=== PATIENT | male | born 1985 | race American Indian/Alaskan Native ===

== ENCOUNTER 2019-05-12 07:22 | Emergency (ER) | payer MEDICAID ==
--- NOTE | 2019-05-12 07:49 | Emergency Department Report ---
HPI - General Chief Complaint: Psych Time Seen by Provider: 05/12/19 07:46 - HPI HPI: 33-year-old -Italian male presents to the emergency department from home, brought in by his mother, for a mental health evaluation. The patient has a past medical history of schizophrenia and allegedly is compliant with his medications that include Depakote, Paxil, Risperdal and a monthly Invega injection. Mom says that he has been talking to himself for the past few days and had admitted to her that he is hearing voices. They came home yesterday and found broken glass and some broken household items that he appears to have intentionally broken. Mom also says that he has been displaying some suicidal ideations. For me, the patient is not very forthcoming with information and just kept repeating "I'm gonna make a move." Through triage, the patient was heard saying that he is homicidal and "I want to get a gun and shoot them in the head." ED Past Medical Hx - Past Medical History Previous Medical History?: Yes Hx Psychiatric Treatment: Yes (Hx Dx Schizophrenia) - Surgical History Past Surgical History?: No - Social History Smoking Status: Current Every Day Smoker Substance Use Type: None - Medications Home Medications: Home Medications Medication Instructions Recorded Confirmed Last Taken Type ALBUTEROL NEB's [Proventil 0.083%] 2.5 mg IH TID PRN 04/07/14 05/13/19 04/03/[address] [Depakote Dr] 1,500 mg PO HS 04/07/14 05/12/19 05/12/19 07:00 History PARoxetine [Paxil] 20 mg PO DAILY 04/07/14 05/13/19 04/06/14 21:00 History risperiDONE [Risperdal] 2 mg PO BID 04/07/14 05/12/19 1 Day Ago History ~05/11/19 Benztropine [Cogentin] 1 mg PO BID 05/12/19 05/12/19 1 Day Ago History ~05/11/19 ED Review of Systems ROS: Stated complaint: MH Other details as noted in HPI Comment: Unobtainable due to pts medical conditions Psychiatric: auditory hallucinations, homicidal thoughts, suicidal thoughts Physical Exam - Physical Exam Vital Signs: Vital Signs 05/12/19 07:30 Temperature 98.3 F Pulse Rate 89 Respiratory 16 Rate Blood Pressure 144/80 O2 Sat by Pulse 99 Oximetry Physical Exam: GENERAL: The patient is well-developed well-nourished. HENT: Normocephalic. Atraumatic. Patient has moist mucous membranes. EYES: Extraocular motions are intact. NECK: Supple. Trachea is midline. CHEST/LUNGS: Clear to auscultation. There is no respiratory distress noted. HEART/CARDIOVASCULAR: Regular. There is no tachycardia. There is no murmur. ABDOMEN: Abdomen is soft, nontender. Patient has normal bowel sounds. There is no abdominal distention. SKIN: Skin is warm and dry. NEURO: The patient is awake but not always cooperative. Mostly nonverbal but when he did speak there was no dysarthria. MUSCULOSKELETAL: There is no tenderness or deformity. There is no evidence of acute injury. ED Course Vital Signs 05/12/19 07:30 Temperature 98.3 F Pulse Rate 89 Respiratory 16 Rate Blood Pressure 144/80 O2 Sat by Pulse 99 Oximetry ED Medical Decision Making - Lab Data Result diagrams: 05/12/19 07:48 05/12/19 07:48 - Medical Decision Making This patient was brought in by his mother with the complaint of auditory hallucinations, responding to internal stimuli, suicidal and homicidal ideations and instructed behavior at home. He has a history of schizophrenia and is allegedly compliant with his medications. Due to the suicidal and homicidal ideations, the patient has been made a 1013. His labs are unremarkable. His vital signs have been stable throughout his ED course. He appears medically cleared for psychiatric placement. - Differential Diagnosis schizophrenia, schizoaffective, bipolar disorder, substance abuse Critical Care Time: No Critical care attestation.: If time is entered above; I have spent that time in minutes in the direct care of this critically ill patient, excluding procedure time. ED Disposition Clinical Impression: Suicidal ideations, Homicidal ideations, History of schizophrenia Psychosis Qualifiers: Psychosis type: unspecified psychosis type Qualified Code(s): F29 - Unspecified psychosis not due to a substance or known physiological condition Disposition: DC/TX-65 PSY HOSP/PSY UNIT Is pt being admited?: No Condition: Stable Referrals: ZORAIDA MELGAR,SHEILA [Other] - 3-5 Days Time of Disposition: 13:10
[2019-05-12 08:05] LABS: Basophils # (Auto) 0.1 K/mm3 (0.0-0.1); Basophils % (Auto) 0.8 % (0.0-1.8); Eosinophils # (Auto) 0.1 K/mm3 (0.0-0.4); Hematocrit 39.8 % (35.5-45.6); Hemoglobin 13.8 gm/dl (11.8-15.2); Lymphocytes # (Auto) 2.8 K/mm3 (1.2-5.4); Lymphocytes % (Auto) 34.8 % (13.4-35.0); Mean Corpuscular HGB Conc 35 % (32-34); Mean Corpuscular Volume 91 fl (84-94); Monocytes # (Auto) 0.8 K/mm3 (0.0-0.8); Monocytes % (Auto) 10.5 % (0.0-7.3); Platelet Count 236 K/mm3 (140-440); Red Blood Count 4.39 M/mm3 (3.65-5.03)
[2019-05-12 08:11] LABS: Bacteria,Urine 4+ /HPF (Negative); Bilirubin,Urine NEG (Negative); Blood,Urine NEG (Negative); Color,Urine Yellow (Yellow); Mucus,Urine FEW /HPF; Sperm,Urine 2+ /HPF (NP)
[2019-05-12 08:17] LABS: Amphetamine Screen,Urine PRESUMPTIVE NEGATIVE; Benzodiazepines Screen,Urine PRESUMPTIVE NEGATIVE; Cocaine Screen,Urine PRESUMPTIVE NEGATIVE; Methadone Screen,Urine PRESUMPTIVE NEGATIVE; Opiate Screen,Urine PRESUMPTIVE NEGATIVE
[2019-05-12 08:25] LABS: BUN/Creatinine Ratio 11; Blood Urea Nitrogen 10 mg/dL (9-20); Calcium 9.2 mg/dL (8.4-10.2); Hemolysis Index 24
[2019-05-12 08:33] LABS: Cannabinoid Screen,Urine PRESUMPTIVE POSITIVE
--- NOTE | 2019-05-12 15:50 | Consultation ---
History of Present Illness - Reason for Consult Consult date: 05/12/19 Reason for consult: Initial Psychiatric Evaluation - Chief Complaint Chief complaint: " No ma'am I don't want to talk" - History of Present Psychiatric Illness Patient is a 33-year-old -Sudanese male presents to the emergency department from home, brought in by his mother, for a mental health evaluation. Today the patient refuses to speak provider. He states, " no ma'am I don't want to talk." Per record the patient has a past medical history of schizophrenia and allegedly is compliant with his medications that include Depakote, Paxil, Risperdal and a monthly Invega injection. Mom says that he has been talking to himself for the past few days and had admitted to her that he is hearing voices. They came home yesterday and found broken glass and some broken household items that he appears to have intentionally broken. Current Psychiatric Medications: Unable to Assess. Past Psychiatric History: Unable to Assess. Past Medication Trials: Unable to Assess. History of Trauma/Abuse: Unable to Assess. History of Drug/Alcohol Abuse: Unable to Assess. Social History: Unable to Assess. Family History of Psychiatric Illness/Substance Abuse: Unable to Assess. Medications and Allergies Allergies Allergy/AdvReac Type Severity Reaction Status Date / Time No Known Allergies Allergy Verified 04/07/14 04:50 Home Medications Medication Instructions Recorded Confirmed Last Taken Type ALBUTEROL NEB's [Proventil 0.083%] 2.5 mg IH TID PRN 04/07/14 08/25/14 04/03/[address] [Depakote Dr] 1,500 mg PO HS 04/07/14 05/12/19 05/12/19 07:00 History PARoxetine [Paxil] 20 mg PO DAILY 04/07/14 08/25/14 04/06/14 21:00 History risperiDONE [Risperdal] 2 mg PO BID 04/07/14 05/12/19 1 Day Ago History ~05/11/19 Benztropine [Cogentin] 1 mg PO BID 05/12/19 05/12/19 1 Day Ago History ~05/11/19 Mental Status Exam - Vital signs Last Vital Signs Temp 98.3 F 05/12/19 07:30 Pulse 89 11/09/19 07:30 Resp 16 05/12/19 07:30 BP 144/80 05/12/19 07:30 Pulse Ox 99 05/12/19 07:30 - Exam Narrative exam: Mental Status Exam: Appearance: hospital attire-green Behavior: poor eye contact Speech: regular rate and tone Mood: unable to assess Affect: unable to assess Thought Process: unable to assess Thought Content: unable to assess Cognition: unable to assess Insight: unable to assess Judgment: unable to assess Results Result Diagrams: 05/12/19 07:48 05/12/19 07:48 Abnormal lab results 05/12/19 05/12/19 05/12/19 Range/Units 07:48 07:48 07:48 MCHC 35 H (32-34) % [place] % (Auto) 10.5 H (0.0-7.3) % Salicylates < 0.3 L (2.8-20.0) mg/dL Acetaminophen < 5.0 L (10.0-30.0) ug/mL All other labs normal. Assessment and Plan Assessment and plan: Impression: Patient refuses initial psychiatric evaluation. He states that he does not want to talk at this time. Recommendation/Plan: 1. Will continue 1013. 2. Will reassess in 24 hours. Disposition: Will refer patient to inpatient psychiatric services. Will staff with Dr. Tadeo.
[2019-05-13] MEDS ORDERED: ACETAMINOPHEN 325 MG TAB PO ONE ×2 (11:05→20:30)
[2019-05-13] MEDS ORDERED: NICOTINE 14 MG/24 HR PATCH TD ONE (11:30)
--- NOTE | 2019-05-13 12:09 | Progress Note ---
Subjective - Reason for Consult Consult date: 05/13/19 Reason for consult: Psychiatric Follow-up Evaluation - Chief Complaint Chief complaint: "I feel nice " Patient is a 33-year-old -Northern Irish male that presents to the emergency department from home, brought in by his mother, for a mental health evaluation. Today the patient is calm and cooperative during the assessment. He reports that he does not know the name of his psychiatric diagnosis. He states, " I'm here because I flipped my mother's table over, cotton broker her glass astray, and broke the remote. I did that because I take the invega sustenna 156mg and it's too much. The invega sustenna is too strong and it makes me hyper." Patient believes that he takes invega sustenna for hyperactivity. He reports being easily irritated/agitated. He denies mood fluctuations, auditory/visual hallucinations, and delusions. Patient is attempting to minimize symptoms. Patient reports that he last received his invega sustenna 2-3 weeks ago. He denies drug/alcohol abuse. UDS positive for marijuana. He denies a history of trauma. He denies sexual, physical, or mental abuse. He reports that he lives with his mother and her . Highest level of education is 10th grade. Per patient he receives SSI in the amount of $675. Patient denies SI/HI's, A/VH's, and delusions. Mental Status Exam - Vital signs Last Vital Signs Temp 98.2 F 05/13/19 07:00 Pulse 68 05/13/19 07:00 Resp 20 05/13/19 07:00 BP 111/67 05/13/19 07:00 Pulse Ox 100 05/13/19 07:00 - Exam Narrative exam: Mental Status Exam: Appearance: hospital attire-green; calm, cooperative Behavior: intermittent eye contact, guarded Speech: regular rate and tone Mood: " I feel nice" Affect: constricted Thought Process: circumstantial Thought Content: denies SI's, A/VH's, and delusions Cognition: limited; alert and oriented x 3 Insight: variable Judgment: variable Assessment and Plan Impression: R/O schizophrenia, schizoaffective disorder, bipolar type. Today the patient is calm and cooperative during the assessment. He denies SI/HI's, A/VH's, and delusions. He appears to be guarded and minimizing symptoms. UDS positive for marijuana. Recommendation/Plan: 1. Continue 1013. 2. Attempt to gain collateral to determine proper disposition. 3. Start Risperdal 1 mg po QHS mood/psychosis. Discussed possible side effects. Patient verbalizes full understanding. 4. Will order routine HgA1c and lipid panel. Disposition: Will refer patient to inpatient psychiatric services. Will staff with Dr. Tadeo.
[2019-05-13 16:38] LABS: Chol/HDL Ratio 2.62 %
[2019-05-13] MEDS ORDERED: ACETAMINOPHEN 325 MG TAB ONE (19:32)
[2019-05-13 20:01] VITALS: BP 127/77
[2019-05-13] MEDS ORDERED: risperiDONE 1 MG TAB PO SCH (22:00)
== END 2019-05-14 00:18 ==
LOC: ED 07:22 → EEVIPCON 07:22 → ED 05-14 00:18
DX: F29 Unspecified psychosis not due to a substance or known physiological condition (principal); F20.9 Schizophrenia, unspecified; F17.200 Nicotine dependence, unspecified, uncomplicated; Z79.899 Other long term (current) drug therapy
CPT/HCPCS: 36415; 80048; 80061; 80307; 80320; 81001; 83036; 85025; 99285; G0480

== ENCOUNTER 2020-06-09 18:26 | Emergency (ER) | payer MEDICAID ==
[2020-06-09 19:05] VITALS: BP 143/93
== END 2020-06-09 22:58 | disposition left against medical advice (07) ==
LOC: ED 18:26
DX: R45.851 Suicidal ideations (principal); F20.9 Schizophrenia, unspecified; Z53.21 Procedure and treatment not carried out due to patient leaving prior to being seen by health care provider

== ENCOUNTER 2020-09-11 14:09 | Emergency (ER) | payer MEDICAID ==
[2020-09-11] MEDS ORDERED: DIPHtheria,PERTUSSIS(ACELL),TETANUS VACCINE/PF 0.5 ML VIAL IM ONE (14:46)
[2020-09-11] MEDS ORDERED: LIDOCAINE 2%/EPINEPHRINE 1:200,000 VIAL (20 ML) INFILTRATI ONE (14:54)
--- NOTE | 2020-09-11 15:01 | Emergency Department Report ---
ED Laceration HPI - HPI Chief Complaint: Extremity Injury, Upper Stated Complaint: ARM LAC Time Seen by Provider: 09/11/20 14:22 Occurred When: Yesterday Location: Upper Extremity Severity: mild Tetanus Status: Not up to Date Laceration Symptoms: Yes Pain, No Foreign Body Sensation, No Numbness, No Weakness Other History: This is a 34-year-old male nontoxic, well nourished in appearance, no acute signs of distress presents to the ED with c/o of right upper arm laceration that occurred yesterday around 10 PM. Patient stated that he punched a glass window due to anger. Patient denies any suicidal homicidal ideation. Patient denies any auditory or visual hallucinations. Patient stated he got into argument that is why he did that. Patient denies decreased sensation or range of motion. Patient stated bleeding is under control. Denies any numbness, tingling, fever, chills, nausea, vomiting, chest pain, shortness of breath, headache or stiff neck. Patient denies any allergies. Patient is that he is not up-to-date with tetanus. ED Review of Systems ROS: Stated complaint: ARM LAC Other details as noted in HPI Constitutional: denies: chills, fever Eyes: denies: eye pain, eye discharge, vision change ENT: denies: ear pain, throat pain Respiratory: denies: cough, shortness of breath, wheezing Cardiovascular: denies: chest pain, palpitations Endocrine: no symptoms reported Gastrointestinal: denies: abdominal pain, nausea, diarrhea Genitourinary: denies: urgency, dysuria Musculoskeletal: denies: back pain, joint swelling, arthralgia Skin: denies: rash, lesions Neurological: denies: headache, weakness, paresthesias Psychiatric: denies: anxiety, depression Hematological/Lymphatic: denies: easy bleeding, easy bruising ED Past Medical Hx - Past Medical History Hx Psychiatric Treatment: Yes (Hx Dx Schizophrenia) - Social History Smoking Status: Current Every Day Smoker - Medications Home Medications: Home Medications Medication Instructions Recorded Confirmed Last Taken Type ALBUTEROL NEB's [Proventil 0.083%] 2.5 mg IH TID PRN 04/07/14 05/13/19 04/03/13 History Divalproex [Alma Tate] 1,500 mg PO HS 04/07/14 05/12/19 05/12/19 07:00 History PARoxetine [Paxil] 20 mg PO DAILY 04/07/14 05/13/19 04/06/14 21:00 History risperiDONE [Risperdal] 2 mg PO BID 04/07/14 05/12/19 1 Day Ago History ~05/11/19 Benztropine [Cogentin] 1 mg PO BID 05/12/19 05/12/19 1 Day Ago History ~05/11/19 Sulfamethoxazole/Trimethoprim 1 each PO BID #14 tablet 09/11/20 Unknown Rx [Bactrim DS TAB] Laceration Physical Exam - Exam General: Vital signs noted. No distress. Alert and acting appropriately. Wound Length (cm): 7 Laceration Location: Upper Extremity Full Body Front + Back: 1 - 7 cm laceration Laceration Exam: Yes Normal Distal CMS, No Foreign Body, No Exposed Tendon, Vessel, or Nerve, No Tendon Injury ED Course Vital Signs 09/11/20 16:51 Temperature 98.2 F Pulse Rate 78 Respiratory 18 Rate Blood Pressure 121/67 [Left] O2 Sat by Pulse 98 Oximetry - Reevaluation(s) Reevaluation #1: 09/11/20 15:01 Patient is speaking in full sentences with no signs of distress noted. - Laceration /Wound Repair Left Arm Wound Location: upper extremity Wound Length (cm): 10 Wound's Depth, Shape: irregular, flap Wound Explored: clean Irrigated w/ Saline (ccs): 40 Betadine Prep?: Yes Anesthesia: Lidocaine w/ Epi Volume Anesthetic (ccs): 6 (2% lido with 1:200,000 epi) Wound Repaired With: sutures Suture Size/Type: 5:0, proline Number of Sutures: 22 Layer Closure?: Yes Deep Layer Suture Size/Type: 3:0 (Vicryl) Number Deep Layer Sutures: 3 Sterile Dressing Applied?: Yes Progress: Under sterile field, I used Betadine to clean the area. I then used 40 mL of normal saline to flush the area. I then used 2% lidocaine with epi 1-200,000 and injected 6 mL to the wound. I then used a 3-0 Vicryl with total of 3 stitches for deeper skin. I then used a 5-0 Prolene to suture the laceration. Number of stitches 22. I then applied a sterile 4 x 4 with tape. Minimal bleeding noted but is under control. Patient tolerated procedure well with no signs of distress. ED Medical Decision Making - Radiology Data [facility] [address] [place] [address] XRay Report Signed Patient: DAYAN MARCOS MR#: [id number] : 1985 Acct:[id number] Age/Sex: 34 / M ADM Date: 09/11/20 Loc: ED Attending Dr: Ordering Physician: SRIDHAR ONOFRE NP Date of Service: 09/11/20 Procedure(s): XR humerus 2+V RT Accession Number(s): [id number] cc: SRIDHAR ONOFRE NP Fluoro Time In Minutes: Right humerus 4 views INDICATION: Right humeral pain IMPRESSION: No radiopaque foreign body is identified within the right arm. Signer Name: Jb Perry MD Signed: 09/11/2020 3:35 PM Workstation Name: [id number] Transcribed By: BC Dictated By: Jb Perry MD Electronically Authenticated By: Jb Perry MD Signed Date/Time: 09/11/201534 DD/ 34 TD/TT: - Medical Decision Making This is a 34-year-old male that presents with laceration. Patient is stable and was examined by me. The laceration suturing has been performed and has been performed and patient tolerated well. A sterile dressing has been applied. Patient was educated on proper wound care. Patient is discharged with Bactrim . Patient was instructed to return in 10 days for suture removal. Patient was instructed to refer to Follow-up with a primary care doctor in 3-5 days or if symptoms worsen and continue return to emergency room as soon as possible. At time of discharge, the patient does not seem toxic or ill in appearance. No acute signs of distress noted. Patient agrees to discharge treatment plan of care. No further questions noted by the patient. Critical care attestation.: If time is entered above; I have spent that time in minutes in the direct care of this critically ill patient, excluding procedure time. ED Disposition Clinical Impression: Laceration Disposition: DC-01 TO HOME OR SELFCARE Is pt being admited?: No Does the pt Need Aspirin: No Condition: Stable Instructions: Laceration Care, Adult Additional Instructions: Follow-up with a primary care doctor in 3-5 days or if symptoms worsen and continue return to emergency room as soon as possible. Return in 10 days for suture removal. Finish full course of antibiotics that is prescribed to you during your visit today. Prescriptions: Sulfamethoxazole/Trimethoprim [Bactrim DS TAB] 1 each PO BID #14 tablet Referrals: GAB BASURTO MD [Primary Care Provider] - 3-5 Days ARABELLA MORFIN MD [Staff Physician] - 3-5 Days Time of Disposition: 16:41
--- NOTE | 2020-09-11 15:40 | XRay Report ---
Right humerus 4 views INDICATION: Right humeral pain IMPRESSION: No radiopaque foreign body is identified within the right arm. Signer Name: Jb Perry MD Signed: 09/11/2020 3:35 PM Workstation Name: [id number]
[2020-09-11 16:52] VITALS: BP 121/67
== END 2020-09-11 17:04 | disposition home or self-care (01) ==
LOC: ED 14:09
DX: S41.111A Laceration without foreign body of right upper arm, initial encounter (principal); F20.9 Schizophrenia, unspecified; F17.200 Nicotine dependence, unspecified, uncomplicated; Z79.899 Other long term (current) drug therapy; W25.XXXA Contact with sharp glass, initial encounter; Y93.89 Activity, other specified; Y92.89 Other specified places as the place of occurrence of the external cause; Y99.8 Other external cause status
CPT/HCPCS: 90471; 90715

== ENCOUNTER 2020-10-13 04:48 | Emergency (ER) | payer MEDICAID ==
[2020-10-13 06:47] LABS: Basophils # (Auto) 0.1 K/mm3 (0.0-0.1); Basophils % (Auto) 0.6 % (0.0-1.8); Eosinophils # (Auto) 0.2 K/mm3 (0.0-0.4); Eosinophils % (Auto) 2.1 % (0.0-4.3); Hematocrit 39.2 % (35.5-45.6); Hemoglobin 13.5 gm/dl (11.8-15.2); Lymphocytes # (Auto) 3.1 K/mm3 (1.2-5.4); Lymphocytes % (Auto) 35.6 % (13.4-35.0); Mean Corpuscular HGB Conc 35 % (32-34); Mean Corpuscular Volume 89 fl (84-94); Monocytes # (Auto) 0.8 K/mm3 (0.0-0.8); Monocytes % (Auto) 9.1 % (0.0-7.3); Platelet Count 247 K/mm3 (140-440)
[2020-10-13 06:50] LABS: BUN/Creatinine Ratio 7
[2020-10-13 06:52] LABS: Blood Urea Nitrogen 8 mg/dL (9-20); Calcium 9.3 mg/dL (8.4-10.2); Hemolysis Index 4
[2020-10-13 08:19] LABS: Bilirubin,Urine NEG (Negative); Blood,Urine NEG (Negative); Color,Urine Yellow (Yellow); Mucus,Urine FEW /HPF; Protein,Urine <15 mg/dL mg/dL (Negative); Sperm,Urine 1+ /HPF (NP); Urobilinogen,Urine < 2.0 mg/dL (<2.0)
[2020-10-13 08:24] LABS: Amphetamine Screen,Urine Negative; Benzodiazepines Screen,Urine Negative; Cannabinoid Screen,Urine Negative; Cocaine Screen,Urine Negative; Methadone Screen,Urine Negative; Opiate Screen,Urine Negative
--- NOTE | 2020-10-13 12:20 | Event Note ---
ED Screening Note Date of service: 10/13/20 Time: 12:18 ED Screening Note: 35-year-old male patient with history of intellectual disability and prior suicidal ideations presents to the emergency department with complaints of auditory hallucinations. Patient states he has been "hearing voices." He is not currently taking any medication. States he does not have anywhere to live because he was released from his long term and his mother/father told him "he's getting to be too much." Denies SI/HI. General: Awake, appropriately interactive, no acute distress. Neck: Supple. Full range of motion intact. Cardiovascular: Normal peripheral perfusion. Pulmonary: No respiratory distress. Patient is speaking normally without use of accessory muscles. Skin: No apparent rashes or lesions. Neurological: No facial asymmetry. Speech is clear. Follows commands. Patient is alert and oriented. Musculoskeletal: Moves all four extremities spontaneously with normal range of motion. Psych: Cooperative. Speech is slow. Thoughts logically construed. I have greeted and performed a focused rapid initial assessment of this patient. A comprehensive ED assessment and evaluation of the patient, analysis of all test results, and completion of the medical decision-making process will be conducted by additional ED providers. This initial assessment/diagnostic orders/clinical plan/treatment(s) is/are subject to change based on patients health status, clinical progression and re-assessment. Further treatment and workup at subsequent clinical provider's discretion. Patient/guardian urged not to elope from the ED as their condition may be serious if not clinically assessed and managed.
[2020-10-13 20:10] VITALS: BP 130/95
== END 2020-10-13 19:00 | disposition left against medical advice (07) ==
LOC: ED 04:48
DX: R44.0 Auditory hallucinations (principal); Z53.21 Procedure and treatment not carried out due to patient leaving prior to being seen by health care provider
CPT/HCPCS: 36415; 80048; 80307; 80320; 81001; 85025; 87086; G0480

== ENCOUNTER 2020-10-15 14:32 | Emergency (ER) | payer MEDICAID ==
[2020-10-15 15:39] LABS: Basophils # (Auto) 0.1 K/mm3 (0.0-0.1); Basophils % (Auto) 0.7 % (0.0-1.8); Eosinophils # (Auto) 0.1 K/mm3 (0.0-0.4); Eosinophils % (Auto) 0.9 % (0.0-4.3); Hematocrit 37.7 % (35.5-45.6); Lymphocytes # (Auto) 2.1 K/mm3 (1.2-5.4); Lymphocytes % (Auto) 29.3 % (13.4-35.0); Mean Corpuscular HGB Conc 35 % (32-34); Mean Corpuscular Volume 88 fl (84-94); Monocytes # (Auto) 0.4 K/mm3 (0.0-0.8); Monocytes % (Auto) 5.6 % (0.0-7.3); Platelet Count 248 K/mm3 (140-440); Red Blood Count 4.29 M/mm3 (3.65-5.03); Red Cell Distribution Width 13.9 % (13.2-15.2)
[2020-10-15 15:41] LABS: Bacteria,Urine 1+ /HPF (Negative); Bilirubin,Urine NEG (Negative); Blood,Urine NEG (Negative); Color,Urine Yellow (Yellow); Mucus,Urine 2+ /HPF; Protein,Urine <15 mg/dL mg/dL (Negative)
[2020-10-15 15:47] LABS: Amphetamine Screen,Urine Negative; Benzodiazepines Screen,Urine Negative; Cannabinoid Screen,Urine Negative; Cocaine Screen,Urine Negative; Methadone Screen,Urine Negative; Opiate Screen,Urine Negative
[2020-10-15 15:51] LABS: BUN/Creatinine Ratio 9; Blood Urea Nitrogen 10 mg/dL (9-20); Calcium 8.8 mg/dL (8.4-10.2); Hemolysis Index 35
--- NOTE | 2020-10-15 18:42 | Emergency Department Report ---
ED Psych HPI - General Chief Complaint: Psych Stated Complaint: MH EVAL Time Seen by Provider: 10/15/20 17:52 Source: patient Mode of arrival: Ambulatory - History of Present Illness Initial Comments: 35-year-old male, history of developmental delay, schizophrenia, presents to ED with auditory hallucinations and suicidal ideations. Patient states he started feeling suicidal this morning. He denies any plan. MD Complaint: suicidal ideation -: days(s) (1) Associated Psychiatric Symptoms: suicidal ideation Quality: constant Improves With: none Worsens With: none Associated Symptoms: denies other symptoms Treatments Prior to Arrival: none If Self Harm: admits thoughts of - Related Data Home Medications Medication Instructions Recorded Confirmed Last Taken ALBUTEROL NEB's [Proventil 0.083%] 2.5 mg IH TID PRN 04/07/14 05/13/19 04/03/13 Divalproex [Alma Tate] 1,500 mg PO HS 04/07/14 05/12/19 05/12/19 07:00 PARoxetine [Paxil] 20 mg PO DAILY 04/07/14 05/13/19 04/06/14 21:00 risperiDONE [Risperdal] 2 mg PO BID 04/07/14 05/12/19 1 Day Ago ~05/11/19 Benztropine [Cogentin] 1 mg PO BID 05/12/19 05/12/19 1 Day Ago ~05/11/19 Previous Rx's Medication Instructions Recorded Last Taken Type Sulfamethoxazole/Trimethoprim 1 each PO BID #14 tablet 09/11/20 Unknown Rx [Bactrim DS TAB] Sulfamethoxazole/Trimethoprim 1 each PO Q12HR #10 tablet 10/17/20 Unknown Rx [Bactrim DS TAB] Allergies Allergy/AdvReac Type Severity Reaction Status Date / Time No Known Allergies Allergy Verified 10/18/20 14:05 ED Review of Systems ROS: Stated complaint: MH EVAL Other details as noted in HPI Comment: All other systems reviewed and negative Psychiatric: auditory hallucinations, suicidal thoughts ED Past Medical Hx - Past Medical History Hx Psychiatric Treatment: Yes (Hx Dx Schizophrenia) - Social History Smoking Status: Never Smoker Substance Use Type: None - Medications Home Medications: Home Medications Medication Instructions Recorded Confirmed Last Taken Type ALBUTEROL NEB's [Proventil 0.083%] 2.5 mg IH TID PRN 04/07/14 05/13/19 04/03/[address] [Depakote Dr] 1,500 mg PO HS 04/07/14 05/12/19 05/12/19 07:00 History PARoxetine [Paxil] 20 mg PO DAILY 04/07/14 05/13/19 04/06/14 21:00 History risperiDONE [Risperdal] 2 mg PO BID 04/07/14 05/12/19 1 Day Ago History ~05/11/19 Benztropine [Cogentin] 1 mg PO BID 05/12/19 05/12/19 1 Day Ago History ~05/11/19 Sulfamethoxazole/Trimethoprim 1 each PO BID #14 tablet 09/11/20 Unknown Rx [Bactrim DS TAB] Sulfamethoxazole/Trimethoprim 1 each PO Q12HR #10 tablet 10/17/20 Unknown Rx [Bactrim DS TAB] ED Physical Exam - General Limitations: No Limitations General appearance: alert, in no apparent distress - Head Head exam: Present: atraumatic, normocephalic - Eye Eye exam: Present: normal appearance, EOMI - ENT ENT exam: Present: mucous membranes moist - Neck Neck exam: Present: normal inspection - Respiratory Respiratory exam: Present: normal lung sounds bilaterally. Absent: respiratory distress - Cardiovascular Cardiovascular Exam: Present: regular rate, normal rhythm - GI/Abdominal GI/Abdominal exam: Absent: distended - Extremities Exam Extremities exam: Present: normal inspection - Neurological Exam Neurological exam: Present: alert, oriented X3 - Psychiatric Psychiatric exam: Present: normal affect, normal mood - Skin Skin exam: Present: warm, dry, intact, normal color ED Course Vital Signs 10/15/20 10/15/20 10/15/20 14:46 18:44 20:05 Temperature 99.9 F H 96 F L 98.1 F Pulse Rate 114 H 90 113 H Respiratory 20 18 18 Rate Blood Pressure 144/96 Blood Pressure 120/82 126/78 [Left] O2 Sat by Pulse 97 98 99 Oximetry 10/16/20 10/16/20 10/16/20 06:45 08:04 20:04 Temperature 97.8 F 98.0 F 98.4 F Pulse Rate 74 81 72 Respiratory 18 20 18 Rate Blood Pressure 132/79 Blood Pressure 105/57 108/60 [Left] O2 Sat by Pulse 96 98 98 Oximetry 10/17/20 10/17/20 04:31 09:54 Temperature 98.9 F Pulse Rate 80 Respiratory 18 18 Rate Blood Pressure Blood Pressure 144/88 [Left] O2 Sat by Pulse 98 100 Oximetry ED Medical Decision Making - Lab Data Result diagrams: 10/15/20 15:17 10/15/20 15:17 - Medical Decision Making 35-year-old male, history of developmental delay, schizophrenia, presents to ED with auditory hallucinations and suicidal ideations. Patient states he started feeling suicidal this morning. He denies any plan. Patient medically clear for mental health evaluation. Will dispo per psych. Critical care attestation.: If time is entered above; I have spent that time in minutes in the direct care of this critically ill patient, excluding procedure time. ED Disposition Clinical Impression: Schizophrenia, UTI (urinary tract infection) Disposition: DC-01 TO HOME OR SELFCARE Is pt being admited?: No Condition: Stable Additional Instructions: Rx antibiotic for urinary tract infection. Follow-up on this with primary care. Prescriptions: Sulfamethoxazole/Trimethoprim [Bactrim DS TAB] 1 each PO Q12HR #10 tablet Referrals: PRIMARY CARE, [Primary Care Provider] - 3-5 Days
[2020-10-15] MEDS: SULFAMETHOXAZOLE/TRIMETHOPRIM 800/160MG DS TAB PO SCH (21:57)
--- NOTE | 2020-10-16 09:01 | Consultation ---
History of Present Illness - Reason for Consult Consult date: 10/16/20 Reason for consult: psychosis - History of Present Psychiatric Illness Per ED Note: 35-year-old male, history of developmental delay, schizophrenia, presents to ED with auditory hallucinations and suicidal ideations. Patient states he started feeling suicidal this morning. He denies any plan. The patient was seen today. He is lying down asleep. He easily arouses but is uncooperative. The patient says "I'm hearing voices and want to kill myself." He then says "they already know what's going on with me." He would provide no further insight as to what is going on with him, or answer any more questions. PAST PSYCHIATRIC HISTORY: Unable to obtain PAST MEDICAL HISTORY: None reported Family Psychiatric History: None reported or documented SOCIAL HISTORY Unable to obtain REVIEW OF SYSTEMS Unable to obtain MENTAL STATUS EXAMINATION General Appearance and Behavior: Age appropriate, sleeping, uncooperative Cooperation: uncooperative, guarded Psychomotor Behavior: Psychomotor normal Mood: Affect and affective range: Restricted Thought Process: illogical Speech: Normal tone and pace Thought Content Suicidal Ideation: Yes Homicidal Ideation: Denies Hallucinations: Yes, Auditory Delusions: None elicited Impulse Control: Insight and Judgment: Memory: Attention: Orientation: Assessment and Plan (1) Schizophrenia Treatment Plan 1013 Start Risperidone 1mg po BID Start Depakote DR 250mg po BID Sitter: Defer to primary Medical: Per primary Disposition: Recommend acute psychiatric inpatient Will follow. Thank you for this consult. Case staffed with Dr. Huff. Medications and Allergies Allergies Allergy/AdvReac Type Severity Reaction Status Date / Time No Known Allergies Allergy Verified 10/15/20 14:45 Home Medications Medication Instructions Recorded Confirmed Last Taken Type ALBUTEROL NEB's [Proventil 0.083%] 2.5 mg IH TID PRN 04/07/14 05/13/19 04/03/13 History Divalproex [Alma Tate] 1,500 mg PO HS 04/07/14 05/12/19 05/12/19 07:00 History PARoxetine [Paxil] 20 mg PO DAILY 04/07/14 05/13/19 04/06/14 21:00 History risperiDONE [Risperdal] 2 mg PO BID 04/07/14 05/12/19 1 Day Ago History ~05/11/19 Benztropine [Cogentin] 1 mg PO BID 05/12/19 05/12/19 1 Day Ago History ~05/11/19 Sulfamethoxazole/Trimethoprim 1 each PO BID #14 tablet 09/11/20 Unknown Rx [Bactrim DS TAB] Active Meds: Active Medications Trimethoprim/Sulfamethoxazole (Sulfamethoxazole/Trimethoprim 800/160mg Ds Tab) 1 each PO Q12HR MATT; Protocol Stop: 10/18/20 10:01 Last Admin: 10/15/20 21:57 Dose: 1 each Documented by: Mental Status Exam - Vital signs Last Vital Signs Temp 98.0 F 10/16/20 08:04 Pulse 81 10/16/20 08:04 Resp 20 10/16/20 08:04 BP 132/79 10/16/20 08:04 Pulse Ox 98 10/16/20 08:04 Results Result Diagrams: 10/15/20 15:17 10/15/20 15:17 Abnormal lab results 10/15/20 10/15/20 10/15/20 Range/Units 15:17 15:17 15:17 MCHC (32-34) % Sodium 135 L (137-145) mmol/L Glucose 150 H (75-100) mg/dL Urine WBC (Auto) (0.0-6.0) /HPF Salicylates < 0.3 L (2.8-20.0) mg/dL Acetaminophen 5.0 L (10.0-30.0) ug/mL 10/15/20 10/15/20 Range/Units 15:17 Unknown MCHC 35 H (32-34) % Sodium (137-145) mmol/L Glucose (75-100) mg/dL Urine WBC (Auto) 14.0 H (0.0-6.0) /HPF Salicylates (2.8-20.0) mg/dL Acetaminophen (10.0-30.0) ug/mL All other labs normal.
[2020-10-16] MEDS ORDERED: ACETAMINOPHEN 325 MG TAB PO ONE (10:08)
[2020-10-16] MEDS: risperiDONE 1 MG TAB PO SCH ×2 (10:13→23:19)
[2020-10-16] MEDS: DIVALPROEX DR 250 MG TAB PO SCH ×2 (10:13→23:18)
[2020-10-16] MEDS: SULFAMETHOXAZOLE/TRIMETHOPRIM 800/160MG DS TAB PO SCH ×2 (10:42→23:15)
[2020-10-17 09:55] VITALS: BP 144/88
[2020-10-17] MEDS ORDERED: ACETAMINOPHEN 325 MG TAB PO ONE (10:56)
[2020-10-17] MEDS: DIVALPROEX DR 250 MG TAB PO SCH (11:08)
[2020-10-17] MEDS: SULFAMETHOXAZOLE/TRIMETHOPRIM 800/160MG DS TAB PO SCH (11:08)
[2020-10-17] MEDS: risperiDONE 1 MG TAB PO SCH (11:09)
--- NOTE | 2020-10-17 12:21 | Progress Note ---
Subjective - Reason for Consult Consult date: 10/17/20 Reason for consult: MHE Requesting physician: NAHED TILLEY - Chief Complaint Chief complaint: PSYCH Progress Patient seen this morning, patient reported doing okay, states that he has been compliant with his medication, denies that he is no longer suicidal or hearing voices at this moment. Patient stated he was the one hearing voices and told his mom to bring him yesterday he does not hurt himself or anyone. Collateral: Spoke with patient mom patient mom stated that patient was scheduled to get Invega shot yesterday at the [facility] she is okay with picking up patient today if shot is given. REVIEW OF SYSTEMS Constitutional: Negative for weight loss ENT: Negative for stridor Respiratory: Negative for cough or hemoptysis All other systems reviewed and are negative MENTAL STATUS EXAMINATION General Appearance and Behavior: Age appropriate, fair hygiene, wearing appropriate clothes, good eye contact, cooperative polite with questioning. Cooperation: Participating/engaged Psychomotor Behavior: unremarkable and within normal limits Mood: Good Affect and affective range: congruent with mood Thought Process: Fluent/Logical, Thought Content: Within reality, Speech: Normal volume, Regular rate and rhythm, Intellectual Functioning: Average Suicidal Ideation: Denies SI Homicidal Ideation: Denies HI Impulse Control: Unimpaired Insight and Judgment: Normal insight and judgment, Memory: Normal, Attention: Normal, Orientation: Alert, oriented, Assessment and Plan (1) Schizophrenia Treatment Plan Invega shot given in ED, outpatient follow-up [facility] recommend at this time. Mom is updated on plan and agrees to picket [employer] patient at 2 PM. MEDICATIONS: Risks, benefits and alternatives of medications discussed with the patient, questions answered and consent obtained from patient. PSYCHOTHERAPY: Supportive psychotherapy provided MEDICAL: Per primary team DELIRIUM PRECAUTIONS: Please re-orient patient frequently, keep lights on during the day, and minimize benzodiazepines and opiates as these medications could worsen patient's confusion. TECHNICAL EDITOR: DISPOSITION: Do Not Recommend acute inpatient psychiatric hospitalization at this time. Case discussed with Dr. Huff who agrees with current disposition LEGAL STATUS: 1013 rescinded FOLLOW-UP: Will sign off Thank you for the consult. Please contact with any questions and/or concerns. Mental Status Exam - Vital signs Last Vital Signs Temp 98.9 F 10/17/20 09:54 Pulse 80 10/17/20 09:54 Resp 18 10/17/20 09:54 BP 144/88 10/17/20 09:54 Pulse Ox 100 10/17/20 09:54
[2020-10-17] MEDS ORDERED: PALIPERIDONE PALMITATE 234 MG/1.5 ML SYRINGE IM STA (12:24)
== END 2020-10-17 15:59 | disposition home or self-care (01) ==
LOC: EEVIPCON 14:32 → ED 14:32
DX: F25.9 Schizoaffective disorder, unspecified (principal); N39.0 Urinary tract infection, site not specified; Z79.899 Other long term (current) drug therapy
CPT/HCPCS: 36415; 80048; 80307; 80320; 81001; 85025; 87086; G0480

== ENCOUNTER 2020-10-18 01:50 | Emergency (ER) | payer MEDICAID ==
[2020-10-18 02:50] VITALS: BP 118/88
[2020-10-18 03:58] LABS: Basophils % (Auto) 0.5 % (0.0-1.8); Eosinophils % (Auto) 0.5 % (0.0-4.3); Hematocrit 39.6 % (35.5-45.6); Hemoglobin 13.7 gm/dl (11.8-15.2); Lymphocytes # (Auto) 2.3 K/mm3 (1.2-5.4); Lymphocytes % (Auto) 29.2 % (13.4-35.0); Mean Corpuscular HGB Conc 35 % (32-34); Mean Corpuscular Volume 89 fl (84-94); Monocytes # (Auto) 0.8 K/mm3 (0.0-0.8); Monocytes % (Auto) 9.9 % (0.0-7.3); Platelet Count 269 K/mm3 (140-440); Red Blood Count 4.45 M/mm3 (3.65-5.03)
[2020-10-18 04:14] LABS: BUN/Creatinine Ratio 7; Blood Urea Nitrogen 9 mg/dL (9-20); Calcium 9.3 mg/dL (8.4-10.2); Hemolysis Index 2
[2020-10-18 07:05] LABS: Bilirubin,Urine NEG (Negative); Blood,Urine NEG (Negative); Color,Urine Yellow (Yellow); Mucus,Urine 3+ /HPF; Sperm,Urine FEW /HPF (NP); Urobilinogen,Urine < 2.0 mg/dL (<2.0)
[2020-10-18 07:11] LABS: Amphetamine Screen,Urine PRESUMPTIVE NEGATIVE; Benzodiazepines Screen,Urine PRESUMPTIVE NEGATIVE; Cannabinoid Screen,Urine PRESUMPTIVE NEGATIVE; Cocaine Screen,Urine PRESUMPTIVE NEGATIVE; Methadone Screen,Urine PRESUMPTIVE NEGATIVE; Opiate Screen,Urine PRESUMPTIVE NEGATIVE
== END 2020-10-18 03:35 | disposition left against medical advice (07) ==
LOC: ED 01:50
DX: R44.0 Auditory hallucinations (principal); Z53.21 Procedure and treatment not carried out due to patient leaving prior to being seen by health care provider
CPT/HCPCS: 36415; 80048; 80307; 80320; 81001; 85025; G0480

== ENCOUNTER 2020-10-18 13:49 | Emergency (ER) | payer MEDICAID ==
[2020-10-18 14:54] LABS: Bilirubin,Urine NEG (Negative); Blood,Urine NEG (Negative); Color,Urine Straw (Yellow); Mucus,Urine FEW /HPF; Protein,Urine <15 mg/dL mg/dL (Negative); Urobilinogen,Urine < 2.0 mg/dL (<2.0); WBC,Urine < 1.0 /HPF (0.0-6.0)
[2020-10-18 14:57] LABS: Basophils # (Auto) 0.1 K/mm3 (0.0-0.1); Basophils % (Auto) 0.8 % (0.0-1.8); Eosinophils # (Auto) 0.1 K/mm3 (0.0-0.4); Eosinophils % (Auto) 0.6 % (0.0-4.3); Hematocrit 38.7 % (35.5-45.6); Lymphocytes # (Auto) 2.4 K/mm3 (1.2-5.4); Lymphocytes % (Auto) 28.3 % (13.4-35.0); Mean Corpuscular HGB Conc 34 % (32-34); Mean Corpuscular Volume 88 fl (84-94); Monocytes # (Auto) 0.6 K/mm3 (0.0-0.8); Monocytes % (Auto) 6.9 % (0.0-7.3); Platelet Count 268 K/mm3 (140-440); Red Cell Distribution Width 14.1 % (13.2-15.2)
[2020-10-18 14:58] LABS: Amphetamine Screen,Urine Negative; Benzodiazepines Screen,Urine Negative; Cannabinoid Screen,Urine Negative; Cocaine Screen,Urine Negative; Methadone Screen,Urine Negative; Opiate Screen,Urine Negative
[2020-10-18 15:20] LABS: Alanine Aminotransferase 24 units/L (7-56); Albumin 3.7 g/dL (3.9-5); BUN/Creatinine Ratio 9; Blood Urea Nitrogen 11 mg/dL (9-20); Hemolysis Index 11
--- NOTE | 2020-10-18 15:45 | Emergency Department Report ---
ED Psych HPI - General Chief Complaint: Psych Stated Complaint: MENTAL HEALTH Time Seen by Provider: 10/18/20 14:10 Source: patient Mode of arrival: Ambulatory - History of Present Illness Initial Comments: Patient is 35 years old male with history of schizophrenia. Patient presented to the ER by his mother for evaluation of hearing voices asking him to kill himself. Patient does not have a specific plan. Patient was seen here yesterday and discharged home. Patient denied homicidal ideation or visual hallucination. Patient found to be talking to himself. Patient is clearly responding to internal stimuli. MD Complaint: suicidal ideation, altered mental status Associated Psychiatric Symptoms: suicidal ideation, racing thoughts, auditory hallucinations Quality: constant If Self Harm: admits thoughts of - Related Data Home Medications Medication Instructions Recorded Confirmed Last Taken ALBUTEROL NEB's [Proventil 0.083%] 2.5 mg IH TID PRN 04/07/14 05/13/19 04/03/[address] [Alma Tate] 1,500 mg PO HS 04/07/14 05/12/19 05/12/19 07:00 PARoxetine [Paxil] 20 mg PO DAILY 04/07/14 05/13/19 04/06/14 21:00 risperiDONE [Risperdal] 2 mg PO BID 04/07/14 05/12/19 1 Day Ago ~05/11/19 Benztropine [Cogentin] 1 mg PO BID 05/12/19 05/12/19 1 Day Ago ~05/11/19 Previous Rx's Medication Instructions Recorded Last Taken Type Sulfamethoxazole/Trimethoprim 1 each PO BID #14 tablet 09/11/20 Unknown Rx [Bactrim DS TAB] Sulfamethoxazole/Trimethoprim 1 each PO Q12HR #10 tablet 10/17/20 Unknown Rx [Bactrim DS TAB] Allergies Allergy/AdvReac Type Severity Reaction Status Date / Time No Known Allergies Allergy Verified 10/18/20 14:05 ED Review of Systems ROS: Stated complaint: MENTAL HEALTH Other details as noted in HPI Comment: All other systems reviewed and negative Constitutional: denies: chills, fever Respiratory: denies: cough, shortness of breath, SOB with exertion Cardiovascular: denies: chest pain, palpitations Gastrointestinal: denies: abdominal pain, nausea, vomiting Neurological: denies: headache, weakness, numbness, paresthesias, confusion Psychiatric: auditory hallucinations, suicidal thoughts. denies: homicidal thoughts ED Past Medical Hx - Past Medical History Hx Psychiatric Treatment: Yes (Hx Dx Schizophrenia) - Social History Smoking Status: Never Smoker Substance Use Type: None - Medications Home Medications: Home Medications Medication Instructions Recorded Confirmed Last Taken Type ALBUTEROL NEB's [Proventil 0.083%] 2.5 mg IH TID PRN 04/07/14 05/13/19 04/03/[address] [Depakote Dr] 1,500 mg PO HS 04/07/14 05/12/19 05/12/19 07:00 History PARoxetine [Paxil] 20 mg PO DAILY 04/07/14 05/13/19 04/06/14 21:00 History risperiDONE [Risperdal] 2 mg PO BID 04/07/14 05/12/19 1 Day Ago History ~05/11/19 Benztropine [Cogentin] 1 mg PO BID 05/12/19 05/12/19 1 Day Ago History ~05/11/19 Sulfamethoxazole/Trimethoprim 1 each PO BID #14 tablet 09/11/20 Unknown Rx [Bactrim DS TAB] Sulfamethoxazole/Trimethoprim 1 each PO Q12HR #10 tablet 10/17/20 Unknown Rx [Bactrim DS TAB] ED Physical Exam - General Limitations: No Limitations General appearance: alert, in no apparent distress, anxious - Head Head exam: Present: atraumatic, normocephalic, normal inspection - Eye Eye exam: Present: normal appearance, PERRL - ENT ENT exam: Present: normal exam, normal orophraynx, mucous membranes moist - Neck Neck exam: Present: normal inspection, full ROM. Absent: tenderness, meningismus - Respiratory Respiratory exam: Present: normal lung sounds bilaterally - Cardiovascular Cardiovascular Exam: Present: regular rate, normal rhythm, normal heart sounds - GI/Abdominal GI/Abdominal exam: Present: soft, normal bowel sounds. Absent: distended, tenderness, guarding, rebound, rigid, organomegaly, mass, bruit, pulsatile mass, hernia - Extremities Exam Extremities exam: Present: normal inspection, full ROM, normal capillary refill. Absent: tenderness - Back Exam Back exam: Present: normal inspection, full ROM. Absent: CVA tenderness (R), CVA tenderness (L) - Neurological Exam Neurological exam: Present: alert, oriented X3, CN II-XII intact - Psychiatric Psychiatric exam: Present: suicidal ideation. Absent: agitated, homicidal ideation - Skin Skin exam: Present: warm, intact, normal color ED Course Vital Signs 10/18/20 10/18/20 10/19/20 14:04 19:24 02:18 Temperature 98.4 F 98.9 F 97.7 F Pulse Rate 90 70 72 Respiratory 20 16 16 Rate Blood Pressure 148/86 Blood Pressure 116/86 106/70 [Right] O2 Sat by Pulse 97 99 97 Oximetry 10/19/20 10/19/20 10/20/20 09:47 16:52 08:39 Temperature 98.9 F 98.2 F 98.2 F Pulse Rate 89 87 73 Respiratory 18 20 18 Rate Blood Pressure 123/82 125/82 Blood Pressure 131/71 [Right] O2 Sat by Pulse 97 96 99 Oximetry ED Medical Decision Making - Lab Data Result diagrams: 10/18/20 14:33 10/18/20 14:33 Critical care attestation.: If time is entered above; I have spent that time in minutes in the direct care of this critically ill patient, excluding procedure time. ED Disposition Clinical Impression: Schizophrenia, Suicidal ideation Disposition: [id number] PSY HOSP/PSY UNIT Is pt being admited?: No Condition: Stable
--- NOTE | 2020-10-19 10:03 | Consultation ---
History of Present Illness - Reason for Consult Consult date: 10/19/20 Reason for consult: mhe Requesting physician: YARELI DAS - History of Present Psychiatric Illness Per ED Provider: Patient is 35 years old male with history of schizophrenia. Patient presented to the ER by his mother for evaluation of hearing voices asking him to kill himself. Patient does not have a specific plan. Patient was seen here yesterday and discharged home. Patient denied homicidal ideation or visual hallucination. Patient found to be talking to himself. Patient is clearly responding to internal stimuli. PSYCH HPI Patient is a 35-year-old single, currently unemployed on SSI -[place] male who currently resides with mother with past psychiatric history of bipolar and schizophrenia who presented to the ED by mom with chief complaint of patient hearing voices telling him to kill himself. Patient was seen by me the other day him discharge after starting patient on his Invega, patient was without any SI HI auditory visual estimation at the time of discharge, who presents to the ED with similar complaints that he is having thoughts of killing himself. PAST PSYCHIATRIC HISTORY Diagnoses: Bipolar schizophrenia Suicide attempts or Self-harm behavior: Yes Prior psychiatric hospitalizations: Yes Substance Abuse history: Patient denies Previous psychiatric medications tried: Invega recently given Outpatient treatment: Yes PAST MEDICAL HISTORY: None reported Family Psychiatric History: None reported or documented SOCIAL HISTORY Marital Status: Single Living Arrangements: With mom Employment Status: [employer] Access to guns/weapons: Education: Ninth grade History of Abuse: None reported Legal History: None reported REVIEW OF SYSTEMS Constitutional: Negative for weight loss ENT: Negative for stridor Respiratory: Negative for cough or hemoptysis All other systems reviewed and are negative MENTAL STATUS EXAMINATION General Appearance and Behavior: Age appropriate, good hygiene, wearing appropriate clothes, poor eye contact, cooperativeirritable with questioning. Cooperation: Hostile and Guarded Psychomotor Behavior: Psychomotor agitation Mood: so-so Affect and affective range: Angry, dysthymic, Thought Process:Circumstantial, Illogical, Thought Content: Obsessions, Hallucinations including auditory, visual, Paranoid Speech: difficulty to understand, confused and blocking Intellectual Functioning: fair Suicidal Ideation: SI Homicidal Ideation: NO Homicidal Impulse Control: Impaired Insight and Judgment: Impaired Memory: Short term memory impaired, Attention: Divided attention impaired Orientation: Alert, oriented Diagnoses: Assessment and Plan - Psychiatric problem (1) Schizophrenia Current Visit: No Status: Acute Treatment Plan Patient already given Invega, refer to facilitty. MEDICATIONS: Risks, benefits and alternatives of medications discussed with the patient, questions answered and consent obtained from patient. PSYCHOTHERAPY: Supportive psychotherapy provided MEDICAL: Per primary team DELIRIUM PRECAUTIONS: Please re-orient patient frequently, keep lights on during the day, and minimize benzodiazepines and opiates as these medications could worsen patient's confusion. HORTICULTURAL SPECIALTY GROWER FIELD: DISPOSITION: Do Recommend acute inpatient psychiatric hospitalization at this time. Case discussed with Dr. Huff who agrees with current disposition LEGAL STATUS: 1013 FOLLOW-UP: Will follow Thank you for the consult. Please contact with any questions and/or concerns. Medications and Allergies Allergies Allergy/AdvReac Type Severity Reaction Status Date / Time No Known Allergies Allergy Verified 10/18/20 14:05 Home Medications Medication Instructions Recorded Confirmed Last Taken Type ALBUTEROL NEB's [Proventil 0.083%] 2.5 mg IH TID PRN 04/07/14 05/13/19 04/03/13 History Divalproex [Alma Tate] 1,500 mg PO HS 04/07/14 05/12/19 05/12/19 07:00 History PARoxetine [Paxil] 20 mg PO DAILY 04/07/14 05/13/19 04/06/14 21:00 History risperiDONE [Risperdal] 2 mg PO BID 04/07/14 05/12/19 1 Day Ago History ~05/11/19 Benztropine [Cogentin] 1 mg PO BID 05/12/19 05/12/19 1 Day Ago History ~05/11/19 Sulfamethoxazole/Trimethoprim 1 each PO BID #14 tablet 09/11/20 Unknown Rx [Bactrim DS TAB] Sulfamethoxazole/Trimethoprim 1 each PO Q12HR #10 tablet 10/17/20 Unknown Rx [Bactrim DS TAB] Mental Status Exam - Vital signs Last Vital Signs Temp 98.9 F 10/19/20 09:47 Pulse 89 10/19/20 09:47 Resp 18 10/19/20 09:47 BP 123/82 10/19/20 09:47 Pulse Ox 97 10/19/20 09:47 Results Result Diagrams: 10/18/20 14:33 10/18/20 14:33 Abnormal lab results 0410/18/20 10/18/20 Range/Units 14:33 14:33 14:33 Sodium 134 L (137-145) mmol/L Glucose 119 H (75-100) mg/dL Albumin 3.7 L (3.9-5) g/dL Salicylates < 0.3 L (2.8-20.0) mg/dL Acetaminophen 5.0 L (10.0-30.0) ug/mL All other labs normal. Assessment and Plan - Psychiatric problem (1) Schizophrenia Current Visit: No Status: Acute
[2020-10-19] MEDS ORDERED: ACETAMINOPHEN 325 MG TAB PO ONE (11:20)
[2020-10-20 08:40] VITALS: BP 131/71
--- NOTE | 2020-10-20 09:26 | Progress Note ---
Subjective - Reason for Consult Consult date: 10/20/20 Reason for consult: MHE Requesting physician: CARLYN LIVINGSTON - Chief Complaint Chief complaint: Psych Progress Patient seen this AM in room, patient endorses still hearing commanding auditory hallucinations telling him to hurt self. REVIEW OF SYSTEMS Constitutional: Negative for weight loss ENT: Negative for stridor Respiratory: Negative for cough or hemoptysis All other systems reviewed and are negative MENTAL STATUS EXAMINATION General Appearance and Behavior: Age appropriate, good hygiene, wearing appropriate clothes, poor eye contact, cooperativeirritable with questioning. Cooperation: Hostile and Guarded Psychomotor Behavior: Psychomotor agitation Mood: so-so Affect and affective range: Angry, dysthymic, Thought Process:Circumstantial, Illogical, Thought Content: Obsessions, Hallucinations including auditory, visual, Paranoid Speech: difficulty to understand, confused and blocking Intellectual Functioning: fair Suicidal Ideation: SI Homicidal Ideation: NO Homicidal Impulse Control: Impaired Insight and Judgment: Impaired Memory: Short term memory impaired, Attention: Divided attention impaired Orientation: Alert, oriented Diagnoses: Assessment and Plan - Psychiatric problem (1) Schizophrenia Current Visit: No Status: Acute Treatment Plan Patient already given Invega, refer to facilitty. MEDICATIONS: Risks, benefits and alternatives of medications discussed with the patient, questions answered and consent obtained from patient. PSYCHOTHERAPY: Supportive psychotherapy provided MEDICAL: Per primary team DELIRIUM PRECAUTIONS: Please re-orient patient frequently, keep lights on during the day, and minimize benzodiazepines and opiates as these medications could worsen patient's confusion. SNAGGER: DISPOSITION: Do Recommend acute inpatient psychiatric hospitalization at this time. Case discussed with Dr. Huff who agrees with current disposition LEGAL STATUS: 1013 FOLLOW-UP: Will follow Thank you for the consult. Please contact with any questions and/or concerns. Mental Status Exam - Vital signs Last Vital Signs Temp 98.2 F 10/20/20 08:39 Pulse 73 10/20/20 08:39 Resp 18 10/20/20 08:39 BP 131/71 10/20/20 08:39 Pulse Ox 99 10/20/20 08:39 Assessment and Plan - Patient Problems (1) Schizophrenia Current Visit: No Status: Acute
== END 2020-10-20 19:45 ==
LOC: EEVIPCON 13:49 → ED 13:49
DX: F25.9 Schizoaffective disorder, unspecified (principal); R45.851 Suicidal ideations; Z20.822 Contact with and (suspected) exposure to COVID-19; Z79.899 Other long term (current) drug therapy
CPT/HCPCS: 36415; 80048; 80053; 80307; 81001; 85025; 99285; U0003; 80320; G0480

== ENCOUNTER 2022-02-12 17:47 | Emergency (ER) | payer MEDICAID ==
--- NOTE | 2022-02-13 06:48 | Emergency Department Report ---
HPI - General Chief Complaint: Psych Time Seen by Provider: 02/13/22 06:40 - HPI HPI: Room 12 The patient is a 36-year-old male present with chief complaint of suicidal ideation. The patient states for the past 2 days he has had suicidal ideation. Patient denies any attempts or having an active plan to harm himself. Patient admits to auditory hallucinations stating he hears voices telling him "somebody is going to kill me." ED Past Medical Hx - Past Medical History Hx Psychiatric Treatment: Yes (Hx Dx Schizophrenia) Hx Asthma: Yes - Surgical History Past Surgical History?: No - Family History Family history: no significant - Social History Smoking Status: Never Smoker Substance Use Type: None (Denies illicit drug use) - Medications Home Medications: Home Medications Medication Instructions Recorded Confirmed Last Taken Type ALBUTEROL NEB's [Proventil 0.083%] 2.5 mg IH TID PRN 04/07/14 05/13/19 04/03/13 History Divalproex [Dorie Tate] 1,500 mg PO HS 04/07/14 05/12/19 05/12/19 07:00 History PARoxetine [Paxil] 20 mg PO DAILY 04/07/14 05/13/19 04/06/14 21:00 History risperiDONE [Risperdal] 2 mg PO BID 04/07/14 05/12/19 1 Day Ago History ~05/11/19 Benztropine [Cogentin] 1 mg PO BID 05/12/19 05/12/19 1 Day Ago History ~05/11/19 Sulfamethoxazole/Trimethoprim 1 each PO BID #14 tablet 09/11/20 Unknown Rx [Bactrim DS TAB] Sulfamethoxazole/Trimethoprim 1 each PO Q12HR #10 tablet 10/17/20 Unknown Rx [Bactrim DS TAB] Divalproex [Dorie TATE] 500 mg PO BID #60 02/14/22 Unknown Rx Paliperidone Palmitate [Invega 156 mg IM QMONTH #1 syr 02/14/22 Unknown Rx Sustenna] Trazodone HCl 50 mg PO QHS #30 02/14/22 Unknown Rx risperiDONE [RisperDAL] 1 mg PO BID #60 02/14/22 Unknown Rx ED Review of Systems ROS: Stated complaint: SI Other details as noted in HPI Constitutional: no symptoms reported Eyes: denies: eye pain ENT: denies: throat pain Respiratory: no symptoms reported Cardiovascular: denies: chest pain Endocrine: no symptoms reported Gastrointestinal: denies: abdominal pain Genitourinary: denies: dysuria Musculoskeletal: denies: back pain Psychiatric: auditory hallucinations, suicidal thoughts Physical Exam - Physical Exam Vital Signs: Vital Signs 02/12/22 17:51 Temperature 99.3 F Pulse Rate 89 Blood Pressure 124/80 [Right] O2 Sat by Pulse 100 Oximetry Physical Exam: GENERAL: The patient is well-developed well-nourished male lying on chair not appearing to be in acute distress. [] HEENT: Normocephalic. Atraumatic. Extraocular motions are intact. Patient has moist mucous membranes. NECK: Supple. Trachea midline CHEST/LUNGS: Clear to auscultation. There is no respiratory distress noted. HEART/CARDIOVASCULAR: Regular. There is no tachycardia. There is no gallop rub or murmur. ABDOMEN: Abdomen is soft, nontender. Patient has normal bowel sounds. There is no abdominal distention. SKIN: There is no rash. There is no edema. There is no diaphoresis. NEURO: The patient is awake, alert, and oriented. The patient is cooperative. The patient has no focal neurologic deficits. The patient has normal speech. GCS 15 MUSCULOSKELETAL: There is no evidence of acute injury. ED Course Vital Signs 02/12/22 17:51 Temperature 99.3 F Pulse Rate 89 Blood Pressure 124/80 [Right] O2 Sat by Pulse 100 Oximetry ED Medical Decision Making - Lab Data Result diagrams: 02/13/22 06:59 02/13/22 06:59 - Differential Diagnosis Suicidal ideation Critical care attestation.: If time is entered above; I have spent that time in minutes in the direct care of this critically ill patient, excluding procedure time. ED Disposition Clinical Impression: Auditory hallucinations, Encounter for behavioral health screening, Medical clearance for psychiatric admission Disposition: 01 HOME / SELF CARE / HOMELESS Is pt being admited?: No Does the pt Need Aspirin: No Condition: Good Additional Instructions: Please follow-up with an outpatient mental health specialist within the next week. Avoid consumption of alcohol, tobacco, smoke products and recreational drugs. Please return to the emergency room right away with new pain, worsened pain, migration of pain, projectile vomiting, change in mental status, confusion, inability tolerate liquid feeds, new, worsened or different symptoms not present on the initial emergency room evaluation professional and Agency Contacts To help [facility] (24/01) [place] Crisis Line: Suicide Prevention Line: Crisis Text Line: Text ``START to 835939 Emergency: 911 Outpatient COMMUNITY Behavioral Health Resources: [place]: [facility] [address] [place], [place] [address] [place]: [facility] [address] [place] [address] Tuesday thru Tuesday - 8am - 5pm Call to schedule an assessment for mental health and substance abuse program s [place]: [facility] Address: [address] [place] [address] Tuesday thru Tuesday- 7am-2pm [facility] Address: [address] [place] [address] Tuesday thru Tuesday: 8:30AM-5PM OUTPATIENT MENTAL HEALTH RESOURCES [facility], [facility] Radha Farhat MD: [address] [facility] [address] [place] [address] [place] [address] [place] [facility]: [facility] [address] [place] [address] [place] [address] [phone] [facility]: [facility] Healthcare: [address] [facility] [address] [facility] [place] [address] [facility] [address] [place]: Carson Nick MD: [id number] [facility] [address] [facility] [id number] [facility]: [address] [place] [address] [phone] [place] CRISIS AND ACCESS LINE: Prescriptions: Divalproex [Dorie TATE] 500 mg PO BID #60 Paliperidone Palmitate [Invega Sustenna] 156 mg IM QMONTH #1 syr risperiDONE [RisperDAL] 1 mg PO BID #60 Trazodone HCl 50 mg PO QHS #30 Referrals: [facility] [Outside] - 3-5 Days [facility] [Outside] - 3-5 Days
[2022-02-13 07:45] LABS: Basophils % (Auto) 0.6 % (0.0-1.8); Eosinophils # (Auto) 0.3 K/mm3 (0.0-0.4); Eosinophils % (Auto) 4.1 % (0.0-4.3); Hematocrit 38.4 % (35.5-45.6); Hemoglobin 13.1 gm/dl (11.8-15.2); Lymphocytes # (Auto) 2.2 K/mm3 (1.2-5.4); Lymphocytes % (Auto) 35.4 % (13.4-35.0); Mean Corpuscular HGB Conc 34 % (32-34); Mean Corpuscular Volume 90 fl (84-94); Monocytes # (Auto) 0.7 K/mm3 (0.0-0.8); Monocytes % (Auto) 11.3 % (0.0-7.3); Platelet Count 236 K/mm3 (140-440); Red Blood Count 4.29 M/mm3 (3.65-5.03); Red Cell Distribution Width 14.8 % (13.2-15.2)
[2022-02-13 08:05] LABS: BUN/Creatinine Ratio 10; Blood Urea Nitrogen 8 mg/dL (9-20); Calcium 8.7 mg/dL (8.4-10.2); Hemolysis Index 20
--- NOTE | 2022-02-13 10:32 | Consultation ---
History of Present Illness - Reason for Consult Consult date: 02/13/22 Reason for consult: SI, hallucinations - History of Present Psychiatric Illness The patient was seen today. He endorses being depressed. The patient also expresses not wanting to live and wanting to kill himself. He denies having a plan to harm himself. He says he's been hearing voices for the past 2 days telling him that someone wants to kill him. He says "they keep getting worse. They make me feel somebody is going to hurt me." The patient says he takes Depakote 500 twice daily. He says "I been taking my medication but it's not really helping at this point." He says he has a history of schizophrenia. PAST PSYCHIATRIC HISTORY: Diagnoses: Schizophrenia, bipolar Suicide attempts or Self-harm behavior: Denies Prior psychiatric hospitalizations: Yes Substance Abuse history: Denies Previous psychiatric medications tried: Depakote Outpatient treatment: Yes PAST MEDICAL HISTORY: None reported Family Psychiatric History: None reported or documented SOCIAL HISTORY Marital Status: Single Living Arrangements: alone Employment Status: disabled Access to guns/weapons: Denies Education: History of Abuse: Denies Legal History: Denies REVIEW OF SYSTEMS Constitutional: Negative for weight loss ENT: Negative for stridor Respiratory: Negative for cough or hemoptysis All other systems reviewed and are negative MENTAL STATUS General Appearance and Behavior: age appropriate, poor eye contact, calm and cooperative Cooperation: Cooperative Psychomotor Behavior: within normal limits Mood: Depressed Affect and affective range: Congruent with stated mood Thought Process: circumstantial Thought Content: hallucinations, SI Speech: Normal tone and pace Suicidal Ideation: Yes Homicidal Ideation: Denies HI Hallucinations: Yes Delusions: Yes Impulse Control: Limited Insight and Judgment: Limited Memory: Limited Attention: Distracted Orientation: alert and oriented Diagnoses: Schizophrenia Treatment Plan [address] 500mg po BID Start Risperidone 1mg po BID Give Invega Sustenna 234mg IM x 1 Start Trazdone 50mg po qhs Medical: per primary Disposition: recommend acute psychiatric treatment Will follow. Thanks Case staffed with Dr. Huff Medications and Allergies Allergies Allergy/AdvReac Type Severity Reaction Status Date / Time No Known Allergies Allergy Verified 10/18/20 14:05 Home Medications Medication Instructions Recorded Confirmed Last Taken Type ALBUTEROL NEB's [Proventil 0.083%] 2.5 mg IH TID PRN 04/07/14 05/13/19 04/03/[address] [Alma Tate] 1,500 mg PO HS 04/07/14 05/12/19 05/12/19 07:00 History PARoxetine [Paxil] 20 mg PO DAILY 04/07/14 05/13/19 04/06/14 21:00 History risperiDONE [Risperdal] 2 mg PO BID 04/07/14 05/12/19 1 Day Ago History ~05/11/19 Benztropine [Cogentin] 1 mg PO BID 05/12/19 05/12/19 1 Day Ago History ~05/11/19 Sulfamethoxazole/Trimethoprim 1 each PO BID #14 tablet 09/11/20 Unknown Rx [Bactrim DS TAB] Sulfamethoxazole/Trimethoprim 1 each PO Q12HR #10 tablet 10/17/20 Unknown Rx [Bactrim DS TAB] Mental Status Exam - Vital signs Last Vital Signs Temp 99.3 F 02/12/22 17:51 Pulse 89 02/12/22 17:51 Resp BP 124/80 02/12/22 17:51 Pulse Ox 98 02/13/22 06:53 Results Result Diagrams: 02/13/22 06:59 02/13/22 06:59 Abnormal lab results 02/13/22 02/13/22 02/13/22 Range/Units 06:59 06:59 06:59 Lymph % (Auto) 35.4 H (13.4-35.0) % [place] % (Auto) 11.3 H (0.0-7.3) % BUN 8 L (9-20) mg/dL Salicylates < 0.3 L (2.8-20.0) mg/dL Acetaminophen (10.0-30.0) ug/mL Valproic Acid 20.1 L (50-100) ug/mL 02/13/22 Range/Units 06:59 Lymph % (Auto) (13.4-35.0) % [place] % (Auto) (0.0-7.3) % BUN (9-20) mg/dL Salicylates (2.8-20.0) mg/dL Acetaminophen 5.0 L (10.0-30.0) ug/mL Valproic Acid (50-100) ug/mL All other labs normal.
[2022-02-13 10:35] LABS: Mucus,Urine FEW /HPF; Sperm,Urine 1+ /HPF (NP)
[2022-02-13] MEDS ORDERED: PALIPERIDONE PALMITATE 234 MG/1.5 ML SYRINGE IM ONE (10:37)
[2022-02-13 10:56] LABS: Bilirubin,Urine Negative (Negative); Color,Urine Straw (Yellow)
[2022-02-13 10:57] LABS: Blood,Urine Negative (Negative); PH,Urine 6.5 (5.0-7.0); Urobilinogen,Urine < 2.0 mg/dL (<2.0)
[2022-02-13 11:24] LABS: Amphetamine Screen,Urine PRESUMPTIVE NEGATIVE; Benzodiazepines Screen,Urine PRESUMPTIVE NEGATIVE; Cannabinoid Screen,Urine PRESUMPTIVE NEGATIVE; Cocaine Screen,Urine PRESUMPTIVE NEGATIVE; Methadone Screen,Urine PRESUMPTIVE NEGATIVE; Opiate Screen,Urine PRESUMPTIVE NEGATIVE
[2022-02-13] MEDS: risperiDONE 1 MG TAB PO SCH ×2 (11:46→22:09)
[2022-02-13] MEDS: DIVALPROEX DR 500 MG TAB PO SCH ×2 (11:46→22:09)
[2022-02-13] MEDS ORDERED: traZODone 50 MG TAB PO SCH (22:00)
[2022-02-13 22:19] VITALS: BP 102/60
[2022-02-14] MEDS: risperiDONE 1 MG TAB PO SCH (09:39)
[2022-02-14] MEDS: DIVALPROEX DR 500 MG TAB PO SCH (09:39)
--- NOTE | 2022-02-14 10:07 | Progress Note ---
Subjective - Reason for Consult Consult date: 02/14/22 Reason for consult: depression, SI - Chief Complaint Chief complaint: The patient was seen today. He reports feeling a lot better on the meds. He says "I needed my meds. I feel a lot better." He denies feeling any fear of endangerment. He says "no, none of that." The patient denies SI/HI or hallucinations of any kind. REVIEW OF SYSTEMS Constitutional: Negative for weight loss ENT: Negative for stridor Respiratory: Negative for cough or hemoptysis All other systems reviewed and are negative MENTAL STATUS General Appearance and Behavior: age appropriate, poor eye contact, calm and cooperative Cooperation: Cooperative Psychomotor Behavior: within normal limits Mood: better Affect and affective range: Congruent with stated mood Thought Process: goal directed Thought Content: none Speech: Normal tone and pace Suicidal Ideation: Denies Homicidal Ideation: Denies HI Hallucinations: Denies Delusions: Denies Impulse Control: Limited Insight and Judgment: Limited Memory: Limited Attention: attentive Orientation: alert and oriented Diagnoses: Schizophrenia Treatment Plan d/c [address] 500mg po BID Risperidone 1mg po BID Trazdone 50mg po qhs Invega Sustenna 156mg IM qmonthly Medical: per primary Disposition: Do not recommend acute psychiatric treatment. The patient understands that if SI/HI or any fear of endangerment he is to seek immediate assistance. The tobacco stripper hand to further discuss safety plan and give all necessary outpatient resources Will sign off. Thanks Case staffed with Dr. Huff Mental Status Exam - Vital signs Last Vital Signs Temp 98 F 02/13/22 22:18 Pulse 55 L 02/13/22 22:18 Resp 16 02/13/22 22:18 BP 102/60 02/13/22 22:18 Pulse Ox 96 02/13/22 22:18
--- NOTE | 2022-02-14 11:58 | Event Note ---
Date: 02/14/22 The patient was evaluated in the emergency department for symptoms described in the history of present illness. He/she was evaluated in the context of the global COVID-19 pandemic, which necessitated consideration that the patient might be at risk for infection with the virus that causes COVID-19. Institutional protocols and algorithms that pertain to the evaluation of patients at risk for COVID-19 are in a state of rapid change based on information released by regulatory bodies including the CDC and federal and state organizations. These policies and algorithms were followed during the patient's care in the emergency department. Please note that these policies, procedures and recommendations changed on a rapid basis. Laboratory studies, vital signs, nursing documentation, ER documentation, and psychiatric documentation are reviewed and appreciated. Nursing team reports no acute events this morning or concerns. The patient is awake and ambulating and does not appear to be in any acute distress. The patient was deemed medically suitable for psychiatric disposition and placement during his initial ER evaluation. The patient continues to remain medically suitable for psychiatric placement and disposition. He is currently pending psychiatric placement. The psychiatry team who recommended discontinuation of 1013. They have written the patient for appropriate psychiatric maintenance medications. He will be discharged at this point in time Vital Signs 02/12/22 02/13/22 02/13/22 17:51 06:53 10:29 Temperature 99.3 F 97.9 F Pulse Rate 89 68 Respiratory 18 Rate Blood Pressure 124/80 121/77 [Right] O2 Sat by Pulse 100 98 100 Oximetry 02/13/22 02/13/22 10:30 22:18 Temperature 98 F Pulse Rate 55 L Respiratory 16 Rate Blood Pressure 102/60 [Right] O2 Sat by Pulse 100 96 Oximetry Lab Results 02/13/22 02/13/22 02/13/22 Range/Units 06:59 06:59 06:59 WBC 6.1 (4.5-11.0) K/mm3 RBC 4.29 (3.65-5.03) M/mm3 Hgb 13.1 (11.8-15.2) gm/dl Hct 38.4 (35.5-45.6) % MCV 90 (84-94) fl MCH 31 (28-32) pg MCHC 34 (32-34) % RDW 14.8 (13.2-15.2) % Plt Count 236 (140-440) K/mm3 Lymph % (Auto) 35.4 H (13.4-35.0) % [place] % (Auto) 11.3 H (0.0-7.3) % Eos % (Auto) 4.1 (0.0-4.3) % Baso % (Auto) 0.6 (0.0-1.8) % Lymph # (Auto) 2.2 (1.2-5.4) K/mm3 [place] # (Auto) 0.7 (0.0-0.8) K/mm3 Eos # (Auto) 0.3 (0.0-0.4) K/mm3 Baso # (Auto) 0.0 (0.0-0.1) K/mm3 Seg Neutrophils % 48.6 (40.0-70.0) % Seg Neutrophils # 3.0 (1.8-7.7) K/mm3 Sodium 141 (137-145) mmol/L Potassium 4.5 (3.6-5.0) mmol/L Chloride 103.7 (98-107) mmol/L Carbon Dioxide 27 (22-30) mmol/L Anion Gap 15 mmol/L BUN 8 L (9-20) mg/dL Creatinine 0.8 (0.8-1.3) mg/dL Estimated GFR > 60 ml/min BUN/Creatinine Ratio 10 % Glucose 92 (75-100) mg/dL Calcium 8.7 (8.4-10.2) mg/dL Urine Color (Yellow) Urine Turbidity (Clear) Urine pH (5.0-7.0) Ur Specific Covert (1.003-1.030) Urine Protein (Negative) mg/dL Urine Glucose (UA) (Negative) mg/dL Urine Ketones (Negative) mg/dL Urine Blood (Negative) Urine Nitrite (Negative) Ur Reducing Substances Urine Bilirubin (Negative) Urine Ictotest Urine Urobilinogen (<2.0) mg/dL Ur Leukocyte Esterase (Negative) Urine WBC (Auto) (0.0-6.0) /HPF Urine RBC (Auto) (0.0-6.0) /HPF Urine Mucus /HPF Urine Sperm (SUSPENSION CORD TIER) /HPF Salicylates < 0.3 L (2.8-20.0) mg/dL Urine Opiates Screen Urine Methadone Screen Acetaminophen (10.0-30.0) ug/mL Ur Barbiturates Screen Valproic Acid 20.1 L (50-100) ug/mL Ur Phencyclidine Scrn Ur Amphetamines Screen U Benzodiazepines Scrn Urine Cocaine Screen U Marijuana (THC) Screen Drugs of Abuse Note Plasma/Serum Alcohol (0-0.07) % SARS-CoV-2 (PCR) (Negative) 02/13/22 02/13/22 02/13/22 Range/Units 06:59 06:59 08:39 WBC (4.5-11.0) K/mm3 RBC (3.65-5.03) M/mm3 Hgb (11.8-15.2) gm/dl Hct (35.5-45.6) % MCV (84-94) fl MCH (28-32) pg MCHC (32-34) % RDW (13.2-15.2) % Plt Count (140-440) K/mm3 Lymph % (Auto) (13.4-35.0) % [place] % (Auto) (0.0-7.3) % Eos % (Auto) (0.0-4.3) % Baso % (Auto) (0.0-1.8) % Lymph # (Auto) (1.2-5.4) K/mm3 [place] # (Auto) (0.0-0.8) K/mm3 Eos # (Auto) (0.0-0.4) K/mm3 Baso # (Auto) (0.0-0.1) K/mm3 Seg Neutrophils % (40.0-70.0) % Seg Neutrophils # (1.8-7.7) K/mm3 Sodium (137-145) mmol/L Potassium (3.6-5.0) mmol/L Chloride (98-107) mmol/L Carbon Dioxide (22-30) mmol/L Anion Gap mmol/L BUN (9-20) mg/dL Creatinine (0.8-1.3) mg/dL Estimated GFR ml/min BUN/Creatinine Ratio % Glucose (75-100) mg/dL Calcium (8.4-10.2) mg/dL Urine Color Straw (Yellow) Urine Turbidity Clear (Clear) Urine pH 6.5 (5.0-7.0) Ur Specific Covert 1.005 (1.003-1.030) Urine Protein 30 mg/dl (Negative) mg/dL Urine Glucose (UA) Negative (Negative) mg/dL Urine Ketones 5 (Negative) mg/dL Urine Blood Negative (Negative) Urine Nitrite Negative (Negative) Ur Reducing Substances Not Reportable Urine Bilirubin Negative (Negative) Urine Ictotest Not Reportable Urine Urobilinogen < 2.0 (<2.0) mg/dL Ur Leukocyte Esterase Negative (Negative) Urine WBC (Auto) 1.0 (0.0-6.0) /HPF Urine RBC (Auto) 1.0 (0.0-6.0) /HPF Urine Mucus Few /HPF Urine Sperm 1+ (SUSPENSION CORD TIER) /HPF Salicylates (2.8-20.0) mg/dL Urine Opiates Screen Urine Methadone Screen Acetaminophen 5.0 L (10.0-30.0) ug/mL Ur Barbiturates Screen Valproic Acid (50-100) ug/mL Ur Phencyclidine Scrn Ur Amphetamines Screen U Benzodiazepines Scrn Urine Cocaine Screen U Marijuana (THC) Screen Drugs of Abuse Note Plasma/Serum Alcohol < 0.01 (0-0.07) % SARS-CoV-2 (PCR) (Negative) 02/13/22 02/13/22 Range/Units 08:39 09:39 WBC (4.5-11.0) K/mm3 RBC (3.65-5.03) M/mm3 Hgb (11.8-15.2) gm/dl Hct (35.5-45.6) % MCV (84-94) fl MCH (28-32) pg MCHC (32-34) % RDW (13.2-15.2) % Plt Count (140-440) K/mm3 Lymph % (Auto) (13.4-35.0) % [place] % (Auto) (0.0-7.3) % Eos % (Auto) (0.0-4.3) % Baso % (Auto) (0.0-1.8) % Lymph # (Auto) (1.2-5.4) K/mm3 [place] # (Auto) (0.0-0.8) K/mm3 Eos # (Auto) (0.0-0.4) K/mm3 Baso # (Auto) (0.0-0.1) K/mm3 Seg Neutrophils % (40.0-70.0) % Seg Neutrophils # (1.8-7.7) K/mm3 Sodium (137-145) mmol/L Potassium (3.6-5.0) mmol/L Chloride (98-107) mmol/L Carbon Dioxide (22-30) mmol/L Anion Gap mmol/L BUN (9-20) mg/dL Creatinine (0.8-1.3) mg/dL Estimated GFR ml/min BUN/Creatinine Ratio % Glucose (75-100) mg/dL Calcium (8.4-10.2) mg/dL Urine Color (Yellow) Urine Turbidity (Clear) Urine pH (5.0-7.0) Ur Specific [place] (1.003-1.030) Urine Protein (Negative) mg/dL Urine Glucose (UA) (Negative) mg/dL Urine Ketones (Negative) mg/dL Urine Blood (Negative) Urine Nitrite (Negative) Ur Reducing Substances Urine Bilirubin (Negative) Urine Ictotest Urine Urobilinogen (<2.0) mg/dL Ur Leukocyte Esterase (Negative) Urine WBC (Auto) (0.0-6.0) /HPF Urine RBC (Auto) (0.0-6.0) /HPF Urine Mucus /HPF Urine Sperm (SUSPENSION CORD TIER) /HPF Salicylates (2.8-20.0) mg/dL Urine Opiates Screen Presumptive negative Urine Methadone Screen Presumptive negative Acetaminophen (10.0-30.0) ug/mL Ur Barbiturates Screen Presumptive negative Valproic Acid (50-100) ug/mL Ur Phencyclidine Scrn Presumptive negative Ur Amphetamines Screen Presumptive negative U Benzodiazepines Scrn Presumptive negative Urine Cocaine Screen Presumptive negative U Marijuana (THC) Screen Presumptive negative Drugs of Abuse Note Disclamer Plasma/Serum Alcohol (0-0.07) % SARS-CoV-2 (PCR) Negative (Negative)
== END 2022-02-14 12:58 | disposition home or self-care (01) ==
LOC: ED 17:47
DX: R44.0 Auditory hallucinations (principal); Z13.30 Encounter for screening examination for mental health and behavioral disorders, unspecified; J45.909 Unspecified asthma, uncomplicated; Z20.822 Contact with and (suspected) exposure to COVID-19
CPT/HCPCS: 36415; 80048; 80164; 80307; 81001; 85025; 96372; 99284; J2426; U0003; 80320; G0480

== ENCOUNTER 2022-02-16 10:14 | Emergency (ER) | payer MEDICAID ==
[2022-02-16 19:46] VITALS: BP 125/76
== END 2022-02-16 20:00 | disposition left against medical advice (07) ==
LOC: ED 10:14
DX: R44.0 Auditory hallucinations (principal); Z13.30 Encounter for screening examination for mental health and behavioral disorders, unspecified; Z53.21 Procedure and treatment not carried out due to patient leaving prior to being seen by health care provider

== ENCOUNTER 2022-02-16 18:51 | Emergency (ER) | payer MEDICAID ==
--- NOTE | 2022-02-17 01:43 | Emergency Department Report ---
ED General Adult HPI - General Stated complaint: PSYCH/HEARING VOICES Time Seen by Provider: 02/17/22 01:08 Source: patient, RN notes reviewed Limitations: No Limitations - History of Present Illness Initial comments: She has complaint noted for sight and hearing voices however patient states this is not the case. He is here for medication refill for losartan 50 mg p.o. daily taken for BP control. Patient denies dizziness no lightheadedness no chest pain no nausea no vomiting. No diaphoresis. Patient is alert oriented x3 appears nontoxic. Patient denies SI or HI. Patient does have history of depression. Advises adherence with medication regimen. Patient denies other complaint. - Related Data Home Medications Medication Instructions Recorded Confirmed Last Taken ALBUTEROL NEB's [Proventil 0.083%] 2.5 mg IH TID PRN 04/07/14 05/13/19 04/03/13 Divalproex [Alma Tate] 1,500 mg PO HS 04/07/14 05/12/19 05/12/19 07:00 PARoxetine [Paxil] 20 mg PO DAILY 04/07/14 05/13/19 04/06/14 21:00 risperiDONE [Risperdal] 2 mg PO BID 04/07/14 05/12/19 1 Day Ago ~05/11/19 Benztropine [Cogentin] 1 mg PO BID 05/12/19 05/12/19 1 Day Ago ~05/11/19 Previous Rx's Medication Instructions Recorded Last Taken Type Sulfamethoxazole/Trimethoprim 1 each PO BID #14 tablet 09/11/20 Unknown Rx [Bactrim DS TAB] Sulfamethoxazole/Trimethoprim 1 each PO Q12HR #10 tablet 10/17/20 Unknown Rx [Bactrim DS TAB] Divalproex [Alma TATE] 500 mg PO BID #60 02/14/22 Unknown Rx Paliperidone Palmitate [Invega 156 mg IM QMONTH #1 syr 02/14/22 Unknown Rx Sustenna] Trazodone HCl 50 mg PO QHS #30 02/14/22 Unknown Rx risperiDONE [RisperDAL] 1 mg PO BID #60 02/14/22 Unknown Rx Losartan [Cozaar] 50 mg PO QDAY #30 tablet 02/17/22 Unknown Rx Allergies Allergy/AdvReac Type Severity Reaction Status Date / Time No Known Allergies Allergy Verified 02/13/22 10:46 ED Review of Systems ROS: Stated complaint: PSYCH/HEARING VOICES Other details as noted in HPI Constitutional: denies: chills, fever Eyes: denies: eye pain, eye discharge, vision change ENT: denies: ear pain, throat pain Respiratory: denies: cough, shortness of breath, wheezing Cardiovascular: denies: chest pain, palpitations Endocrine: no symptoms reported Gastrointestinal: denies: abdominal pain, nausea, vomiting, diarrhea Genitourinary: denies: urgency, dysuria Musculoskeletal: denies: back pain, joint swelling, arthralgia Skin: denies: rash, lesions Neurological: as per HPI. denies: headache, weakness, paresthesias, vertigo Psychiatric: denies: anxiety, depression Hematological/Lymphatic: denies: easy bleeding, easy bruising ED Past Medical Hx - Past Medical History Hx Psychiatric Treatment: Yes (Hx Dx Schizophrenia) Hx Asthma: Yes - Social History Smoking Status: Never Smoker Substance Use Type: None (Denies illicit drug use) - Medications Home Medications: Home Medications Medication Instructions Recorded Confirmed Last Taken Type ALBUTEROL NEB's [Proventil 0.083%] 2.5 mg IH TID PRN 04/07/14 05/13/19 04/03/13 History Divalproex [Alma Tate] 1,500 mg PO HS 04/07/14 05/12/19 05/12/19 07:00 History PARoxetine [Paxil] 20 mg PO DAILY 04/07/14 05/13/19 04/06/14 21:00 History risperiDONE [Risperdal] 2 mg PO BID 04/07/14 05/12/19 1 Day Ago History ~05/11/19 Benztropine [Cogentin] 1 mg PO BID 05/12/19 05/12/19 1 Day Ago History ~05/11/19 Sulfamethoxazole/Trimethoprim 1 each PO BID #14 tablet 09/11/20 Unknown Rx [Bactrim DS TAB] Sulfamethoxazole/Trimethoprim 1 each PO Q12HR #10 tablet 10/17/20 Unknown Rx [Bactrim DS TAB] Divalproex [Alma TATE] 500 mg PO BID #60 02/14/22 Unknown Rx Paliperidone Palmitate [Invega 156 mg IM QMONTH #1 syr 02/14/22 Unknown Rx Sustenna] Trazodone HCl 50 mg PO QHS #30 02/14/22 Unknown Rx risperiDONE [RisperDAL] 1 mg PO BID #60 02/14/22 Unknown Rx Losartan [Cozaar] 50 mg PO QDAY #30 tablet 02/17/22 Unknown Rx ED Physical Exam - General General appearance: alert, in no apparent distress - Head Head exam: Present: normocephalic, normal inspection - Eye Eye exam: Present: PERRL, EOMI. Absent: conjunctival injection, nystagmus Pupils: Present: normal accommodation - ENT ENT exam: Present: mucous membranes moist - Neck Neck exam: Present: normal inspection, full ROM. Absent: tenderness, lymphadenopathy - Respiratory Respiratory exam: Present: normal lung sounds bilaterally. Absent: respiratory distress, wheezes - Cardiovascular Cardiovascular Exam: Present: regular rate, normal rhythm, normal heart sounds. Absent: systolic murmur, diastolic murmur, rubs, gallop - GI/Abdominal GI/Abdominal exam: Present: soft, normal bowel sounds. Absent: distended, tenderness - Rectal Rectal exam: Present: deferred - Extremities Exam Extremities exam: Present: normal inspection, full ROM, normal capillary refill - Back Exam Back exam: Present: normal inspection, full ROM. Absent: CVA tenderness (R), CVA tenderness (L) - Neurological Exam Neurological exam: Present: alert, oriented X3, CN II-XII intact, normal gait - Expanded Neurological Exam Expanded Patient oriented to: Present: person, place, time Speech: Present: fluid speech Best Eye Response ([place]): (4) open spontaneously Best Motor Response (Jolly): (6) obeys commands Best Verbal Response ([place]): (5) oriented Jolly Total: 15 - Psychiatric Psychiatric exam: Present: normal affect, normal mood - Skin Skin exam: Present: warm, dry, intact, normal color. Absent: rash ED Medical Decision Making - Medical Decision Making Patient currently alert oriented x3 amatory with steady gait there is no chest pain or shortness of breath no dizziness no lightheadedness no fevers no chills no headache. Plan refill losartan as requested. Follow-up primary care doctor in 2 to 3 days. Patient verbalized agreement understanding discharge plan patient DC'd home in stable condition at this time. Critical care attestation.: If time is entered above; I have spent that time in minutes in the direct care of this critically ill patient, excluding procedure time. ED Disposition Clinical Impression: Medication refill Disposition: 01 HOME / SELF CARE / HOMELESS Is pt being admited?: No Does the pt Need Aspirin: No Condition: Stable Instructions: Hypertension, Adult, [id number], Losartan tablets Additional Instructions: Take medications as prescribed follow-up with your doctor in 2 to 3 days return to emergency department should symptoms worsen. Prescriptions: Losartan [Cozaar] 50 mg PO QDAY #30 tablet Referrals: [facility] [Provider Group] - 3-5 Days Forms: Work/School Release Form(ED) Time of Disposition: 01:45
[2022-02-17 06:04] VITALS: BP 134/79
== END 2022-02-17 06:32 | disposition still patient (30) ==
LOC: ED 18:51
DX: R44.0 Auditory hallucinations (principal); Z76.0 Encounter for issue of repeat prescription; J45.909 Unspecified asthma, uncomplicated
CPT/HCPCS: 99282

== ENCOUNTER 2022-02-17 18:42 | Emergency (ER) | payer MEDICAID ==
[2022-02-18 15:11] LABS: Basophils % (Auto) 0.6 % (0.0-1.8); Eosinophils # (Auto) 0.2 K/mm3 (0.0-0.4); Eosinophils % (Auto) 3.1 % (0.0-4.3); Hematocrit 36.9 % (35.5-45.6); Hemoglobin 12.6 gm/dl (11.8-15.2); Lymphocytes # (Auto) 2.7 K/mm3 (1.2-5.4); Lymphocytes % (Auto) 40.6 % (13.4-35.0); Mean Corpuscular HGB Conc 34 % (32-34); Mean Corpuscular Volume 89 fl (84-94); Monocytes # (Auto) 0.4 K/mm3 (0.0-0.8); Monocytes % (Auto) 6.5 % (0.0-7.3); Platelet Count 234 K/mm3 (140-440); Red Blood Count 4.14 M/mm3 (3.65-5.03); Red Cell Distribution Width 14.7 % (13.2-15.2)
[2022-02-18 15:28] LABS: Alanine Aminotransferase 13 units/L (7-56); Albumin 3.7 g/dL (3.9-5); Blood Urea Nitrogen 11 mg/dL (9-20)
[2022-02-18 16:16] LABS: BUN/Creatinine Ratio 12; Calcium 8.8 mg/dL (8.4-10.2)
== END 2022-02-17 22:09 | disposition left against medical advice (07) ==
LOC: ED 18:42
DX: R45.851 Suicidal ideations (principal); Z53.21 Procedure and treatment not carried out due to patient leaving prior to being seen by health care provider

== ENCOUNTER 2022-02-18 11:13 | Emergency (ER) | payer MEDICAID ==
[2022-02-18 11:42] VITALS: BP 113/79
[2022-02-18 14:19] LABS: Amphetamine Screen,Urine PRESUMPTIVE NEGATIVE; Benzodiazepines Screen,Urine PRESUMPTIVE NEGATIVE; Cannabinoid Screen,Urine PRESUMPTIVE NEGATIVE; Cocaine Screen,Urine PRESUMPTIVE NEGATIVE; Methadone Screen,Urine PRESUMPTIVE NEGATIVE; Opiate Screen,Urine PRESUMPTIVE NEGATIVE
[2022-02-18 14:42] LABS: Basophils # (Auto) 0.1 K/mm3 (0.0-0.1); Basophils % (Auto) 0.9 % (0.0-1.8); Eosinophils # (Auto) 0.2 K/mm3 (0.0-0.4); Eosinophils % (Auto) 3.9 % (0.0-4.3); Hematocrit 38.2 % (35.5-45.6); Hemoglobin 12.8 gm/dl (11.8-15.2); Lymphocytes # (Auto) 2.3 K/mm3 (1.2-5.4); Lymphocytes % (Auto) 42.5 % (13.4-35.0); Mean Corpuscular HGB Conc 34 % (32-34); Mean Corpuscular Volume 90 fl (84-94); Monocytes # (Auto) 0.5 K/mm3 (0.0-0.8); Monocytes % (Auto) 8.8 % (0.0-7.3); Platelet Count 246 K/mm3 (140-440); Red Blood Count 4.26 M/mm3 (3.65-5.03); Red Cell Distribution Width 14.9 % (13.2-15.2)
--- NOTE | 2022-02-18 14:52 | Emergency Department Report ---
ED General Adult HPI - General Chief complaint: Psych Stated complaint: SI/HEARING VOICES Time Seen by Provider: 02/18/22 14:51 Source: patient Mode of arrival: Ambulatory Limitations: No Limitations - History of Present Illness Initial comments: Patient presents to the emergency department the chief complaint of suicidal ideation. Patient states he is hearing voices that are telling him to kill himself. Patient denies homicidal ideation. -: unknown Severity scale (0 -10): 0 Consistency: constant Improves with: none Worsens with: none Associated Symptoms: denies other symptoms Treatments Prior to Arrival: none - Related Data Home Medications Medication Instructions Recorded Confirmed Last Taken Divalproex Dr [Depakote Dr] 500 mg PO HS 04/07/14 02/18/22 05/12/19 07:00 Allergies Allergy/AdvReac Type Severity Reaction Status Date / Time No Known Allergies Allergy Verified 02/13/22 10:46 ED Review of Systems ROS: Stated complaint: SI/HEARING VOICES Other details as noted in HPI Comment: All other systems reviewed and negative Constitutional: denies: chills, fever Eyes: denies: eye pain, eye discharge, vision change ENT: denies: ear pain, throat pain Respiratory: denies: cough, shortness of breath, wheezing Cardiovascular: denies: chest pain, palpitations Endocrine: no symptoms reported Gastrointestinal: denies: abdominal pain, nausea, diarrhea Genitourinary: denies: urgency, dysuria Musculoskeletal: denies: back pain, joint swelling, arthralgia Skin: denies: rash, lesions Neurological: denies: headache, weakness, paresthesias Psychiatric: auditory hallucinations, suicidal thoughts. denies: anxiety, depression Hematological/Lymphatic: denies: easy bleeding, easy bruising ED Past Medical Hx - Past Medical History Hx Psychiatric Treatment: Yes (Hx Dx Schizophrenia) Hx Asthma: Yes - Social History Smoking Status: Current Some Day Smoker - Medications Home Medications: Home Medications Medication Instructions Recorded Confirmed Last Taken Type Divalproex Dr [Depakote Dr] 500 mg PO 04/07/14 02/18/22 05/12/19 07:00 History ED Physical Exam - General Limitations: No Limitations General appearance: alert, in no apparent distress - Head Head exam: Present: atraumatic, normocephalic - Eye Eye exam: Present: normal appearance, PERRL, EOMI - ENT ENT exam: Present: mucous membranes moist - Neck Neck exam: Present: normal inspection - Respiratory Respiratory exam: Present: normal lung sounds bilaterally. Absent: respiratory distress - Cardiovascular Cardiovascular Exam: Present: regular rate, normal rhythm. Absent: systolic murmur, diastolic murmur, rubs, gallop - GI/Abdominal GI/Abdominal exam: Present: soft, normal bowel sounds. Absent: distended, tenderness - Rectal Rectal exam: Present: deferred - Extremities Exam Extremities exam: Present: normal inspection - Back Exam Back exam: Present: normal inspection - Neurological Exam Neurological exam: Present: alert, oriented X3, CN II-XII intact. Absent: motor sensory deficit - Psychiatric Psychiatric exam: Present: suicidal ideation - Skin Skin exam: Present: warm, dry, intact, normal color. Absent: rash ED Course Vital Signs 02/18/22 02/18/22 11:40 13:51 Temperature 97.5 F L Pulse Rate 70 Respiratory 17 Rate Blood Pressure 113/79 [Right] O2 Sat by Pulse 98 98 Oximetry ED Medical Decision Making - Lab Data Result diagrams: 02/18/22 12:57 02/18/22 12:57 Lab Results 02/18/22 02/18/22 02/18/22 Range/Units 12:57 12:57 12:57 WBC 5.5 (4.5-11.0) K/mm3 RBC 4.26 (3.65-5.03) M/mm3 Hgb 12.8 (11.8-15.2) gm/dl Hct 38.2 (35.5-45.6) % MCV 90 (84-94) fl MCH 30 (28-32) pg MCHC 34 (32-34) % RDW 14.9 (13.2-15.2) % Plt Count 246 (140-440) K/mm3 Lymph % (Auto) 42.5 H (13.4-35.0) % [place] % (Auto) 8.8 H (0.0-7.3) % Eos % (Auto) 3.9 (0.0-4.3) % Baso % (Auto) 0.9 (0.0-1.8) % Lymph # (Auto) 2.3 (1.2-5.4) K/mm3 [place] # (Auto) 0.5 (0.0-0.8) K/mm3 Eos # (Auto) 0.2 (0.0-0.4) K/mm3 Baso # (Auto) 0.1 (0.0-0.1) K/mm3 Seg Neutrophils % 43.9 (40.0-70.0) % Seg Neutrophils # 2.4 (1.8-7.7) K/mm3 Sodium 142 (137-145) mmol/L Potassium 4.4 (3.6-5.0) mmol/L Chloride 104.4 (98-107) mmol/L Carbon Dioxide 28 (22-30) mmol/L Anion Gap 14 mmol/L BUN 8 L (9-20) mg/dL Creatinine 0.9 (0.8-1.3) mg/dL Estimated GFR > 60 ml/min BUN/Creatinine Ratio 9 % Glucose 85 (75-100) mg/dL Calcium 8.8 (8.4-10.2) mg/dL Total Bilirubin 0.20 (0.1-1.2) mg/dL AST 22 (5-40) units/L ALT 13 (7-56) units/L Alkaline Phosphatase 51 (35-129) units/L Total Protein 6.7 (6.3-8.2) g/dL Albumin 3.9 (3.9-5) g/dL Albumin/Globulin Ratio 1.4 % TSH 1.240 (0.270-4.200) mlU/mL Urine Color (Yellow) Urine Turbidity (Clear) Specific [place] (Man) (1.003-1.030) Ur Protein (Man) (Negative) mg/dL Ur Ketones (Man) (Negative) Urine Bilirubin (Man) (Negative) Urine WBC (Auto) (0.0-6.0) /HPF Urine RBC (Auto) (0.0-6.0) /HPF U Epithel Cells (Auto) (0-13.0) /HPF Urine Bacteria (Auto) (Negative) /HPF Urine RBC (Manual) (Negative) Urine Mucus /HPF Salicylates (2.8-20.0) mg/dL Urine Opiates Screen Urine Methadone Screen Acetaminophen (10.0-30.0) ug/mL Ur Barbiturates Screen Ur Phencyclidine Scrn Ur Amphetamines Screen U Benzodiazepines Scrn Urine Cocaine Screen U Marijuana (THC) Screen Drugs of Abuse Note Plasma/Serum Alcohol (0-0.07) % SARS-CoV-2 (PCR) (Negative) 02/18/22 02/18/22 02/18/22 Range/Units 12:57 12:57 12:57 WBC (4.5-11.0) K/mm3 RBC (3.65-5.03) M/mm3 Hgb (11.8-15.2) gm/dl Hct (35.5-45.6) % MCV (84-94) fl MCH (28-32) pg MCHC (32-34) % RDW (13.2-15.2) % Plt Count (140-440) K/mm3 Lymph % (Auto) (13.4-35.0) % [place] % (Auto) (0.0-7.3) % Eos % (Auto) (0.0-4.3) % Baso % (Auto) (0.0-1.8) % Lymph # (Auto) (1.2-5.4) K/mm3 [place] # (Auto) (0.0-0.8) K/mm3 Eos # (Auto) (0.0-0.4) K/mm3 Baso # (Auto) (0.0-0.1) K/mm3 Seg Neutrophils % (40.0-70.0) % Seg Neutrophils # (1.8-7.7) K/mm3 Sodium (137-145) mmol/L Potassium (3.6-5.0) mmol/L Chloride (98-107) mmol/L Carbon Dioxide (22-30) mmol/L Anion Gap mmol/L BUN (9-20) mg/dL Creatinine (0.8-1.3) mg/dL Estimated GFR ml/min BUN/Creatinine Ratio % Glucose (75-100) mg/dL Calcium (8.4-10.2) mg/dL Total Bilirubin (0.1-1.2) mg/dL AST (5-40) units/L ALT (7-56) units/L Alkaline Phosphatase (35-129) units/L Total Protein (6.3-8.2) g/dL Albumin (3.9-5) g/dL Albumin/Globulin Ratio % TSH (0.270-4.200) mlU/mL Urine Color (Yellow) Urine Turbidity (Clear) Specific [place] (Man) (1.003-1.030) Ur Protein (Man) (Negative) mg/dL Ur Ketones (Man) (Negative) Urine Bilirubin (Man) (Negative) Urine WBC (Auto) (0.0-6.0) /HPF Urine RBC (Auto) (0.0-6.0) /HPF U Epithel Cells (Auto) (0-13.0) /HPF Urine Bacteria (Auto) (Negative) /HPF Urine RBC (Manual) (Negative) Urine Mucus /HPF Salicylates < 0.3 L (2.8-20.0) mg/dL Urine Opiates Screen Urine Methadone Screen Acetaminophen 5.0 L (10.0-30.0) ug/mL Ur Barbiturates Screen Ur Phencyclidine Scrn Ur Amphetamines Screen U Benzodiazepines Scrn Urine Cocaine Screen U Marijuana (THC) Screen Drugs of Abuse Note Plasma/Serum Alcohol < 0.01 (0-0.07) % SARS-CoV-2 (PCR) (Negative) 02/18/22 02/18/22 02/18/22 Range/Units 14:10 Unknown Unknown WBC (4.5-11.0) K/mm3 RBC (3.65-5.03) M/mm3 Hgb (11.8-15.2) gm/dl Hct (35.5-45.6) % MCV (84-94) fl MCH (28-32) pg MCHC (32-34) % RDW (13.2-15.2) % Plt Count (140-440) K/mm3 Lymph % (Auto) (13.4-35.0) % [place] % (Auto) (0.0-7.3) % Eos % (Auto) (0.0-4.3) % Baso % (Auto) (0.0-1.8) % Lymph # (Auto) (1.2-5.4) K/mm3 [place] # (Auto) (0.0-0.8) K/mm3 Eos # (Auto) (0.0-0.4) K/mm3 Baso # (Auto) (0.0-0.1) K/mm3 Seg Neutrophils % (40.0-70.0) % Seg Neutrophils # (1.8-7.7) K/mm3 Sodium (137-145) mmol/L Potassium (3.6-5.0) mmol/L Chloride (98-107) mmol/L Carbon Dioxide (22-30) mmol/L Anion Gap mmol/L BUN (9-20) mg/dL Creatinine (0.8-1.3) mg/dL Estimated GFR ml/min BUN/Creatinine Ratio % Glucose (75-100) mg/dL Calcium (8.4-10.2) mg/dL Total Bilirubin (0.1-1.2) mg/dL AST (5-40) units/L ALT (7-56) units/L Alkaline Phosphatase (35-129) units/L Total Protein (6.3-8.2) g/dL Albumin (3.9-5) g/dL Albumin/Globulin Ratio % TSH (0.270-4.200) mlU/mL Urine Color Yellow (Yellow) Urine Turbidity Clear (Clear) Specific [place] (Man) 1.030 (1.003-1.030) Ur Protein (Man) 1+ (Negative) mg/dL Ur Ketones (Man) Negative (Negative) Urine Bilirubin (Man) Moderate (Negative) Urine WBC (Auto) 6.0 (0.0-6.0) /HPF Urine RBC (Auto) 16.0 (0.0-6.0) /HPF U Epithel Cells (Auto) 10.0 (0-13.0) /HPF Urine Bacteria (Auto) 1+ (Negative) /HPF Urine RBC (Manual) Negative (Negative) Urine Mucus 3+ /HPF Salicylates (2.8-20.0) mg/dL Urine Opiates Screen Presumptive negative Urine Methadone Screen Presumptive negative Acetaminophen (10.0-30.0) ug/mL Ur Barbiturates Screen Presumptive negative Ur Phencyclidine Scrn Presumptive negative Ur Amphetamines Screen Presumptive negative U Benzodiazepines Scrn Presumptive negative Urine Cocaine Screen Presumptive negative U Marijuana (THC) Screen Presumptive negative Drugs of Abuse Note Disclamer Plasma/Serum Alcohol (0-0.07) % SARS-CoV-2 (PCR) Negative (Negative) - Medical Decision Making Mental health evaluation ordered 1013 applied Patient medically cleared Mental health evaluation done and will place the patient on the board for inpatient psychiatric treatment Critical care attestation.: If time is entered above; I have spent that time in minutes in the direct care of this critically ill patient, excluding procedure time. ED Disposition Clinical Impression: Suicidal ideations [facility] Is pt being admited?: No Does the pt Need Aspirin: No Condition: Stable
[2022-02-18 14:56] LABS: Bacteria,Urine 1+ /HPF (Negative); Mucus,Urine 3+ /HPF
[2022-02-18 14:56] LABS: Alanine Aminotransferase 13 units/L (7-56); Albumin 3.9 g/dL (3.9-5); BUN/Creatinine Ratio 9; Blood Urea Nitrogen 8 mg/dL (9-20); Calcium 8.8 mg/dL (8.4-10.2); Hemolysis Index 3
[2022-02-18 15:00] LABS: Color,Urine Yellow (Yellow)
[2022-02-19] MEDS ORDERED: MIDAZOLAM 5 MG/5 ML INJ MDV IV SCH (11:00)
== END 2022-02-19 10:25 ==
LOC: ED 11:13
DX: R45.851 Suicidal ideations (principal); Z20.822 Contact with and (suspected) exposure to COVID-19; F17.200 Nicotine dependence, unspecified, uncomplicated; J45.909 Unspecified asthma, uncomplicated; F20.9 Schizophrenia, unspecified
CPT/HCPCS: 36415; 80053; 80307; 81001; 84443; 85025; 99285; J2250; U0003; 80320; G0480